=== PATIENT | female | born 1985 | race Caucasian/White ===

== ENCOUNTER 2017-11-19 08:00 | Outpatient (CLI) | payer MEDICAID ==
[2017-11-19 13:16] LABS: BASOPHILS % (AUTO) 0.3 %; EOSINOPHILS # (AUTO) 0.1 10^3/uL (0.0-0.7); EOSINOPHILS % (AUTO) 0.9 %; LYMPHOCYTES # (AUTO) 1.7 10^3/uL (1.5-3.5); LYMPHOCYTES % (AUTO) 28.4 %; MEAN CORPUSCULAR HEMOGLOBIN 31.7 pg (27.0-31.0); MEAN CORPUSCULAR HGB CONC 34.2 g/dL (32.0-36.0); MEAN CORPUSCULAR VOLUME 92.6 fL (81.0-99.0); MEAN PLATELET VOLUME 8.4 fL (7.9-10.8); MONOCYTES # (AUTO) 0.3 10^3/uL (0.0-1.0); MONOCYTES % (AUTO) 5.6 %; NEUTROPHILS # (AUTO) 3.8 10^3/uL (1.5-6.6); NEUTROPHILS % (AUTO) 64.8 %; PLT - PLATELET COUNT 268 10^3/uL (130-450); RED CELL DISTRIBUTION WIDTH 13.7 % (12.0-15.0); WHITE BLOOD COUNT 5.8 x10^3/uL (4.8-10.8)
[2017-11-19 13:51] LABS: ALBUMIN/GLOBULIN RATIO 1.4 (1.0-2.2); ALKALINE PHOSPHATASE 34 IU/L (42-121); ALT ALANINE AMINOTRANSFERASE 33 IU/L (10-60); AST ASPARTATE AMINOTRANSFERASE 29 IU/L (10-42); BILIRUBIN,TOTAL 1.2 mg/dL (0.2-1.0); BUN - BLOOD UREA NITROGEN 13 mg/dL (6-20); CALCIUM 8.8 mg/dL (8.5-10.3); CARBON DIOXIDE - CO2 26 mmol/L (21-32); CHLORIDE 106 mmol/L (101-111); CHOLESTEROL 155 mg/dL; CREATININE 0.9 mg/dL (0.4-1.0); GFR - MDRD 73 (>89); GLUCOSE 97 mg/dL (70-100); HDL CHOLESTEROL 78 mg/dL; LDL CHOLESTEROL,CALCULATED 59 mg/dL; LDL/HDL RATIO 0.8 (<4.4); SODIUM 137 mmol/L (135-145); TOTAL PROTEIN 6.8 g/dL (6.7-8.2); VLDL CHOLESTEROL 18 mg/dL
== END 2017-11-19 08:01 | disposition home or self-care (01) ==
LOC: LAB.N 08:00
PROVIDERS: ATTEND Nurse Practitioner Gerontology
DX: Z13.9 Encounter for screening, unspecified (principal)
CPT/HCPCS: 36415; 80053; 80061; 83721; 84443; 85025

== ENCOUNTER 2018-03-22 08:00 | Outpatient (CLI) | payer MEDICAID | END 2018-03-22 08:01 | disposition home or self-care (01) | LOC: LAB.N 08:00 | PROVIDERS: ATTEND Nurse Practitioner Gerontology | DX: Z33.1 Pregnant state, incidental (principal) | CPT/HCPCS: 36415; 84702 ==

== ENCOUNTER 2018-03-24 08:21 | Outpatient (CLI) | payer MEDICAID | END 2018-03-24 08:22 | disposition home or self-care (01) | LOC: LAB.N 08:21 | PROVIDERS: ATTEND Nurse Practitioner Gerontology | DX: Z33.1 Pregnant state, incidental (principal) | CPT/HCPCS: 36415; 84702 ==

== ENCOUNTER 2018-06-10 21:07 | Emergency (ER) | payer MEDICAID ==
[2018-06-10 21:22] LABS: BILIRUBIN,URINE NEGATIVE (NEGATIVE); GLUCOSE, URINE (UA) NEGATIVE (NEGATIVE); KETONES,URINE (UA) NEGATIVE (NEGATIVE); LEUKOCYTE ESTERASE, URINE SMALL (NEGATIVE); NITRITE,URINE NEGATIVE (NEGATIVE); OCCULT BLOOD,URINE TRACE-INTA (NEGATIVE); PH,URINE 7.5 PH (5.0-7.5); PROTEIN,URINE NEGATIVE (NEGATIVE); UROBILINOGEN,URINE 0.2 (NORMAL) E.U./dL (NORMAL)
[2018-06-10 21:26] LABS: CLARITY,URINE CLEAR (CLEAR)
[2018-06-10 21:58] LABS: AMORPHOUS SEDIMENT,UR Moderate /LPF; BACTERIA,URINE Moderate /HPF (None Seen); RBC,URINE 0-5 /HPF (0-5); SQUAMOUS EPITHELIAL CELL,UR MOD Squamous (<= Few)
[2018-06-10] MEDS ORDERED: SODIUM CHLORIDE 0.9% 1,000 ML IV ONE (23:17)
[2018-06-10 23:22] LABS: BASOPHILS % (AUTO) 0.3 %; EOSINOPHILS % (AUTO) 0.2 %; HGB - HEMOGLOBIN 12.2 g/dL (12.0-16.0); LYMPHOCYTES % (AUTO) 8.9 %; MEAN CORPUSCULAR HEMOGLOBIN 32.4 pg (27.0-31.0); MEAN CORPUSCULAR HGB CONC 34.5 g/dL (32.0-36.0); MEAN PLATELET VOLUME 7.4 fL (7.9-10.8); MONOCYTES # (AUTO) 0.7 10^3/uL (0.0-1.0); MONOCYTES % (AUTO) 5.7 %; NEUTROPHILS # (AUTO) 9.9 10^3/uL (1.5-6.6); NEUTROPHILS % (AUTO) 84.9 %; PLT - PLATELET COUNT 235 10^3/uL (130-450); RED BLOOD COUNT 3.77 10^6/uL (4.20-5.40); RED CELL DISTRIBUTION WIDTH 13.5 % (12.0-15.0); WHITE BLOOD COUNT 11.7 x10^3/uL (4.8-10.8)
[2018-06-10 23:38] LABS: ALBUMIN 3.6 g/dL (3.2-5.5); ALBUMIN/GLOBULIN RATIO 1.1 (1.0-2.2); BILIRUBIN,TOTAL 0.9 mg/dL (0.2-1.0); CALCIUM 8.4 mg/dL (8.5-10.3); CREATININE 0.5 mg/dL (0.4-1.0); TOTAL PROTEIN 6.8 g/dL (6.7-8.2)
[2018-06-11] MEDS ORDERED: ACETAMINOPHEN 325 MG TABLET PO STA (00:03)
--- NOTE | 2018-06-11 00:07 | ED Physician Documentation ---
PD HPI FEVER - Stated complaint Stated Complaint: FEVER/NAUSEA/13WK OB - Chief complaint Chief Complaint: Abd Pain - History obtained from History obtained from: Patient - History of Present Illness Timing - onset: Enter time (11:00), Today Timing details: Abrupt onset, Intermittant Pain level max: 0 Pain level now: 0 Associated symptoms: Chills, Sweats, Nasal congestion (mild). No: Ear pain, Rhinorrhea, Sinus pain, Sore throat, Dry cough, Productive cough, Chest pain, Dyspnea, Abdominal pain, NVD, Urinary symptoms, Rash/skin lesion Similar symptoms before: Has not had sx before Recently seen: Not recently seen - Additional information Additional information: Approximately 13 weeks , c/o fever since 11 AM today, Tmax at home 103 ( higher in ED triage). Has taken tylenol twice today with transient improvement. Also sweats/chills, mild nasal congestion. otherwise feels well Review of Systems Constitutional: reports: Fever, Chills, Sweats Ears: denies: Ear pain Nose: reports: Rhinorrhea / runny nose, Congestion. 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: Ovarian cysts : Kidney stones - Past Surgical History Past Surgical History: Yes General: Cholecystectomy HEENT: Tonsil/Adenoidectomy - Present Medications Home Medications: Ambulatory Orders Medication Instructions Recorded Confirmed Prenatl Vit6/Iron/FA/B12/Ca/D3 1 tab PO DAILY 06/10/18 06/10/18 [Mteryti Combo Pack] - Allergies Allergies/Adverse Reactions: Allergies Allergy/AdvReac Type Severity Reaction Status Date / Time No Known Drug Allergies Allergy Verified 06/10/18 21:14 - Social History Does the pt smoke?: Yes Smoking Status: Current every day smoker Does the pt drink ETOH?: No Does the pt have substance abuse?: Yes - Immunizations Immunizations are current?: Yes - POLST Patient has POLST: No PD ED PE NORMAL - Vitals Vital signs reviewed: Yes - General General: Alert and oriented X 3, No acute distress, Well developed/nourished - HEENT HEENT: Pharynx benign - Neck Neck: Supple, no meningeal sign - Cardiac Cardiac: RRR, No murmur - Respiratory Respiratory: No respiratory distress, Clear bilaterally - Abdomen Abdomen: Soft, Non tender - Back Back: No CVA TTP - Derm Derm: Normal color, Warm and dry Results - Vitals Vitals: Oxygen O2 Source Room air - Labs Labs: Laboratory Tests 06/10/18 06/10/18 06/10/18 21:19 23:05 23:05 WBC 11.7 H RBC 3.77 L Hgb 12.2 Hct 35.4 L MCV 94.0 MCH 32.4 H MCHC 34.5 RDW 13.5 Plt Count 235 MPV 7.4 L Neut # (Auto) 9.9 H Lymph # (Auto) 1.0 L [place] # (Auto) 0.7 Eos # (Auto) 0.0 Baso # (Auto) 0.0 Absolute Nucleated RBC 0.00 Nucleated RBC % 0.0 Sodium 131 L Potassium 3.4 L Chloride 101 Carbon Dioxide 21 Anion Gap 9.0 BUN 9 Creatinine 0.5 Estimated GFR (MDRD) 143 Glucose 91 Lactic Acid Calcium 8.4 L Total Bilirubin 0.9 AST 19 ALT 15 Alkaline Phosphatase 52 Total Protein 6.8 Albumin 3.6 Globulin 3.2 Albumin/Globulin Ratio 1.1 Lipase 33 HCG, Quant Urine Color YELLOW Urine Clarity CLEAR Urine pH 7.5 Ur Specific [place] 1.015 Urine Protein NEGATIVE Urine Glucose (UA) NEGATIVE Urine Ketones NEGATIVE Urine Occult Blood TRACE-INTA Urine Nitrite NEGATIVE Urine Bilirubin NEGATIVE Urine Urobilinogen 0.2 (NORMAL) Ur Leukocyte Esterase SMALL H Urine RBC 0-5 Urine WBC 0-3 Ur Squamous Epith Cells MOD Squamous H Amorphous Sediment Moderate Urine Bacteria Moderate H Urine Mucus Ur Microscopic Review INDICATED Urine Culture Comments NOT INDICATED Influenza A (Rapid) Influenza B (Rapid) 06/10/18 06/11/18 06/11/18 23:05 01:03 01:05 WBC RBC Hgb Hct MCV MCH MCHC RDW Plt Count MPV Neut # (Auto) Lymph # (Auto) [place] # (Auto) Eos # (Auto) Baso # (Auto) Absolute Nucleated RBC Nucleated RBC % Sodium Potassium Chloride Carbon Dioxide Anion Gap BUN Creatinine Estimated GFR (MDRD) Glucose Lactic Acid 1.5 Calcium Total Bilirubin AST ALT Alkaline Phosphatase Total Protein Albumin Globulin Albumin/Globulin Ratio Lipase HCG, Quant 46679.00 Urine Color Urine Clarity Urine pH Ur Specific [place] Urine Protein Urine Glucose (UA) Urine Ketones Urine Occult Blood Urine Nitrite Urine Bilirubin Urine Urobilinogen Ur Leukocyte Esterase Urine RBC Urine WBC Ur Squamous Epith Cells Amorphous Sediment Urine Bacteria Urine Mucus Ur Microscopic Review Urine Culture Comments Influenza A (Rapid) Negative Influenza B (Rapid) Negative 06/11/18 04:30 WBC RBC Hgb Hct MCV MCH MCHC RDW Plt Count MPV Neut # (Auto) Lymph # (Auto) [place] # (Auto) Eos # (Auto) Baso # (Auto) Absolute Nucleated RBC Nucleated RBC % Sodium Potassium Chloride Carbon Dioxide Anion Gap BUN Creatinine Estimated GFR (MDRD) Glucose Lactic Acid Calcium Total Bilirubin AST ALT Alkaline Phosphatase Total Protein Albumin Globulin Albumin/Globulin Ratio Lipase HCG, Quant Urine Color YELLOW Urine Clarity CLEAR Urine pH 7.0 Ur Specific [place] 1.020 Urine Protein NEGATIVE Urine Glucose (UA) NEGATIVE Urine Ketones NEGATIVE Urine Occult Blood TRACE-INTA Urine Nitrite NEGATIVE Urine Bilirubin NEGATIVE Urine Urobilinogen 0.2 (NORMAL) Ur Leukocyte Esterase SMALL H Urine RBC 0-5 Urine WBC 4-5 Ur Squamous Epith Cells FEW Squamous Amorphous Sediment Urine Bacteria Few Urine Mucus Few Strands Ur Microscopic Review INDICATED Urine Culture Comments INDICATED Influenza A (Rapid) Influenza B (Rapid) - Rads (name of study) OB first trimester US Radiology: Prelim report reviewed, See rad report PD MEDICAL DECISION MAKING - ED course Complexity details: reviewed results, re-evaluated patient, considered differential, d/w patient ED course: Despite high fever, patient appears to be in NAD and has unremarkable physical exam, reassuring test results (US, blood tests (minimal leukocytosis)). UA s/o contaminated specimen (squamous cells), although no WBC/RBC on microscopy. A second sample was collected prior to discharge so culture can be performed (if indicated by result), but suspicion of UTI/pyelonephritis is very low at this point, based on lack of microscopy WBC. Fever resolved during ED stay ( subsequent to tylenol) - Sepsis Event Vital Signs: Oxygen O2 Source Room air Departure - Departure Disposition: Home, Self Care Clinical Impression: Fever Qualifiers: Fever type: unspecified Qualified Code(s): R50.9 - Fever, unspecified Qualifiers: Weeks of gestation: 11 weeks Qualified Code(s): Z3A.11 - 11 weeks gestation of Condition: Good Instructions: ED Fever Unconf Cause Follow-Up: Joie De La Rosa ARNP [Primary Care Provider] - Discharge Date/Time: 06/11/18 04:35
--- NOTE | 2018-06-11 02:24 | Ultrasound Report ---
Reason: pelvic pain, 13 weeks , febrile Procedure Date: 06/11/2018 Accession Number: [id number] / [id number] Procedure: US - OB First Trimester CPT Code: FULL RESULT: EXAM: FIRST TRIMESTER OBSTETRIC ULTRASOUND EXAM DATE: 06/11/2018 01:23 AM. CLINICAL HISTORY: Pelvic pain, 13 weeks , febrile. LMP: 03/21/2018. COMPARISONS: None. TECHNIQUE: Transabdominal ultrasound examination with static image documentation. CLINICAL DATES: EGA 11 weeks 5 days with SUSAN 12/26/2018 based on LMP. ASSESSMENT: Gestational Sac: Single intrauterine. Mean gestational sac diameter: 75 mm. Embryo: CRL (crown-rump length) 43 mm = 11 weeks 0 days. Cardiac activity: 188 beats per minute. Yolk sac: 5 mm. Amniotic fluid: Not accurately assessed at this gestational age. Early placenta: Anterior. Other: No perigestational fluid collection demonstrated. MATERNAL STRUCTURES: Uterus: Anteverted. Unremarkable. Cervix: Closed. Right Ovary/Adnexa: Unremarkable. The ovary measures 2.8 x 1.5 x 1.2 cm, volume 2.7 cc. Left Ovary/Adnexa: Corpus luteum measuring 2.0 x 1.0 cm. The ovary measures 4.5 x 1.6 x 2.1 cm, volume 7.5 cc. Free Fluid: None. Other: None. IMPRESSION: 1. Single viable intrauterine at EGA 11 weeks 0 days with SUSAN 12/31/2018 based on crown-rump length, which is concordant with clinical dates. 2. Assigned dating is SUSAN 12/26/2018 based on LMP. 3. Ovaries appear normal with corpus luteum on the left. RADIA
[2018-06-11 04:36] VITALS: BP 110/65
[2018-06-11 04:41] LABS: BILIRUBIN,URINE NEGATIVE (NEGATIVE); GLUCOSE, URINE (UA) NEGATIVE (NEGATIVE); KETONES,URINE (UA) NEGATIVE (NEGATIVE); LEUKOCYTE ESTERASE, URINE SMALL (NEGATIVE); NITRITE,URINE NEGATIVE (NEGATIVE); OCCULT BLOOD,URINE TRACE-INTA (NEGATIVE); PROTEIN,URINE NEGATIVE (NEGATIVE); UROBILINOGEN,URINE 0.2 (NORMAL) E.U./dL (NORMAL)
[2018-06-11 04:49] LABS: CLARITY,URINE CLEAR (CLEAR)
[2018-06-11 04:50] LABS: BACTERIA,URINE Few /HPF (None Seen); MUCUS,URINE Few Strands; RBC,URINE 0-5 /HPF (0-5); SQUAMOUS EPITHELIAL CELL,UR FEW Squamous (<= Few)
== END 2018-06-11 04:35 | disposition home or self-care (01) ==
LOC: ED 21:07
DX: O99.89 Other specified diseases and conditions complicating pregnancy, childbirth and the puerperium (principal); R50.9 Fever, unspecified; F17.200 Nicotine dependence, unspecified, uncomplicated; Z3A.11 11 weeks gestation of pregnancy
CPT/HCPCS: 36415; 76801; 80053; 81001; 83605; 83690; 84702; 85025; 87086; 87275; 87276; 96360; 99283; 99284; A9270; 81003

== ENCOUNTER 2018-06-14 21:20 | Emergency (ER) | payer MEDICAID ==
--- NOTE | 2018-06-14 21:48 | ED Physician Documentation ---
PD HPI ABD PAIN - Stated complaint Stated Complaint: ABD PX/11WKS PREG - Chief complaint Chief Complaint: Abd Pain - History obtained from History obtained from: Patient - History of Present Illness Timing - onset: How many days ago (1-2) Timing - details: Gradual onset Pain level max: 8 Pain level now: 5 Quality: Cramping, Pain Location: Suprapubic Radiation: Other (no radiation) Improved by: Other (no ameliorating factors) Worsened by: Other (no exacerbating factors) Associated symptoms: No: Fever, Nausea, Vomiting Similar symptoms before: Diagnosis (patient feels symptoms are reminiscent of her previous miscarriage) Recently seen: Emergency Dept (T+R few days ago (from this ED by me) for fever; at that time, she did not have any of the symptoms she is now presenting with ( specifically, she did not have any abdominal or pelvic pain, vaginal bleeding). She had contacted her doctor subsequent to that ED visit and was told to take acetaminophen on a regular basis until f/u (scheduled for 2 days from tonight's visit, with outpatient US scheduled for tomorrow). She missed a dose of acetaminophen on Thursday (2 days ago), and had fever to 103 (PO).) - Additional information Additional information: approximately 11 weeks . 3 days ago (Thursday night), she developed spotting (vaginal bleeding), noted when wiping after urinating. She subsequently developed worsening vaginal bleeding and 2 days ago (Thursday morning), she developed suprapubic cramping, which also has been steadily increasing. 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: Ovarian 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 : Kidney stones HEENT: None Psych: None Musculoskeletal: None Derm: None - Past Surgical History Past Surgical History: Yes General: Cholecystectomy HEENT: Tonsil/Adenoidectomy - Present Medications Home Medications: Ambulatory Orders Medication Instructions Recorded Confirmed Prenatl Vit6/Iron/FA/B12/Ca/D3 1 tab PO DAILY 06/10/18 06/10/18 [Mteryti Combo Pack] oxyCODONE [Roxicodone] 5 mg PO Q6H PRN #14 tablet 06/15/18 - Allergies Allergies/Adverse Reactions: Allergies Allergy/AdvReac Type Severity Reaction Status Date / Time No Known Drug Allergies Allergy Verified 06/14/18 21:29 - Social History Does the pt smoke?: Yes Smoking Status: Current every day smoker Does the pt drink ETOH?: No Does the pt have substance abuse?: Yes - Immunizations Immunizations are current?: Yes - POLST Patient has POLST: No PD ED PE NORMAL - Vitals Vital signs reviewed: Yes - General General: Alert and oriented X 3, Well developed/nourished, Other (mostly NAD, although she has a few episodes of obvious painful distress during H+P, lasting a few minutes per episode) - HEENT HEENT: Moist mucous membranes - Cardiac Cardiac: RRR, No murmur - Respiratory Respiratory: No respiratory distress, Clear bilaterally - Abdomen Abdomen: Soft, Non tender - Back Back: No CVA TTP - Derm Derm: Normal color, Warm and dry PD ED PE EXPANDED - Female Female : Vaginal Bleeding, Tissue present, Licensed Practical Vocational Nurse present (VALERIE Aguilar), Other (moderate amount of gelatinous, friable clots which were removed, revealing tissue that was extruding from os; tissue removed, and this was found to be POC (embryo/early stage fetus). after tissue removed, small residual clotting removed. no vaginal bleeding noted once all of the clots and the tissue was removed. ). No: Adnexal Tenderness Results - Vitals Vitals: Vital Signs - 24 hr 06/15/18 06/15/18 06/15/18 02:17 03:05 04:23 Temperature 37 C Heart Rate 83 87 Respiratory 16 17 12 Rate Blood Pressure 111/61 112/68 O2 Saturation 100 100 06/15/18 04:46 Temperature Heart Rate Respiratory 17 Rate Blood Pressure O2 Saturation Oxygen O2 Source Room air - Labs Labs: Laboratory Tests 06/14/18 06/14/18 06/14/18 21:50 21:50 22:25 WBC 11.7 H RBC 3.33 L Hgb 10.4 L Hct 30.7 L MCV 92.1 MCH 31.3 H MCHC 33.9 RDW 13.1 Plt Count 228 MPV 7.2 L Neut # (Auto) 8.9 H Lymph # (Auto) 1.8 [place] # (Auto) 0.9 Eos # (Auto) 0.1 Baso # (Auto) 0.0 Absolute Nucleated RBC 0.00 Nucleated RBC % 0.0 Sodium Potassium Chloride Carbon Dioxide Anion Gap BUN Creatinine Estimated GFR (MDRD) Glucose Calcium Total Bilirubin AST ALT Alkaline Phosphatase Total Protein Albumin Globulin Albumin/Globulin Ratio Lipase Urine Color YELLOW Urine Clarity CLEAR Urine pH 6.0 Ur Specific [place] 1.020 1.020 Urine Protein NEGATIVE Urine Glucose (UA) NEGATIVE Urine Ketones NEGATIVE Urine Occult Blood MODERATE H Urine Nitrite NEGATIVE Urine Bilirubin NEGATIVE Urine Urobilinogen 0.2 (NORMAL) Ur Leukocyte Esterase NEGATIVE Urine RBC 0-5 Urine WBC 0-3 Ur Squamous Epith Cells RARE Squamous Urine Bacteria None Seen Ur Microscopic Review INDICATED Urine Culture Comments NOT INDICATED Urine HCG, Qual POSITIVE 06/14/18 22:25 WBC RBC Hgb Hct MCV MCH MCHC RDW Plt Count MPV Neut # (Auto) Lymph # (Auto) [place] # (Auto) Eos # (Auto) Baso # (Auto) Absolute Nucleated RBC Nucleated RBC % Sodium 135 Potassium 3.4 L Chloride 105 Carbon Dioxide 23 Anion Gap 7.0 BUN 10 Creatinine 0.5 Estimated GFR (MDRD) 143 Glucose 105 H Calcium 8.5 Total Bilirubin 0.3 AST 22 ALT 20 Alkaline Phosphatase 68 Total Protein 6.1 L Albumin 2.8 L Globulin 3.3 Albumin/Globulin Ratio 0.8 L Lipase 29 Urine Color Urine Clarity Urine pH Ur Specific [place] Urine Protein Urine Glucose (UA) Urine Ketones Urine Occult Blood Urine Nitrite Urine Bilirubin Urine Urobilinogen Ur Leukocyte Esterase Urine RBC Urine WBC Ur Squamous Epith Cells Urine Bacteria Ur Microscopic Review Urine Culture Comments Urine HCG, Qual PD MEDICAL DECISION MAKING - ED course Complexity details: reviewed results, re-evaluated patient, considered differential, d/w patient ED course: US reveals no cardiac activity. Subsequent to pelvic exam (during which clots and fetus were removed from vagina/os), patient reported significant improvement in the cramping pain and bleeding. Exam does not suggest endometritis nor other source for the fevers she has been experiencing. - Sepsis Event Vital Signs: Vital Signs - 24 hr 06/15/18 06/15/18 06/15/18 02:17 03:05 04:23 Temperature 37 C Heart Rate 83 87 Respiratory 16 17 12 Rate Blood Pressure 111/61 112/68 O2 Saturation 100 100 06/15/18 04:46 Temperature Heart Rate Respiratory 17 Rate Blood Pressure O2 Saturation Oxygen O2 Source Room air Departure - Departure Disposition: 01 Home, Self Care Clinical Impression: Complete miscarriage Condition: Good Instructions: ED Miscarriage Completed Follow-Up: Joie De La Rosa ARNP [Primary Care Provider] - Prescriptions: oxyCODONE [Roxicodone] 5 mg PO Q6H PRN #14 tablet PRN Reason: Pain Comments: 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 Discharge Date/Time: 06/15/18 04:47
[2018-06-14 22:10] LABS: BILIRUBIN,URINE NEGATIVE (NEGATIVE); GLUCOSE, URINE (UA) NEGATIVE (NEGATIVE); KETONES,URINE (UA) NEGATIVE (NEGATIVE); LEUKOCYTE ESTERASE, URINE NEGATIVE (NEGATIVE); NITRITE,URINE NEGATIVE (NEGATIVE); OCCULT BLOOD,URINE MODERATE (NEGATIVE); PROTEIN,URINE NEGATIVE (NEGATIVE); UROBILINOGEN,URINE 0.2 (NORMAL) E.U./dL (NORMAL)
[2018-06-14 22:16] LABS: BACTERIA,URINE None Seen /HPF (None Seen); CLARITY,URINE CLEAR (CLEAR); RBC,URINE 0-5 /HPF (0-5); SQUAMOUS EPITHELIAL CELL,UR RARE Squamous (<= Few)
[2018-06-14] MEDS ORDERED: MORPHINE 2 MG/ML CARPUJECT IVP STA (22:17)
[2018-06-14 22:36] LABS: BASOPHILS % (AUTO) 0.4 %; EOSINOPHILS # (AUTO) 0.1 10^3/uL (0.0-0.7); EOSINOPHILS % (AUTO) 0.8 %; HGB - HEMOGLOBIN 10.4 g/dL (12.0-16.0); LYMPHOCYTES # (AUTO) 1.8 10^3/uL (1.5-3.5); LYMPHOCYTES % (AUTO) 15.3 %; MEAN CORPUSCULAR HEMOGLOBIN 31.3 pg (27.0-31.0); MEAN CORPUSCULAR HGB CONC 33.9 g/dL (32.0-36.0); MEAN CORPUSCULAR VOLUME 92.1 fL (81.0-99.0); MEAN PLATELET VOLUME 7.2 fL (7.9-10.8); MONOCYTES # (AUTO) 0.9 10^3/uL (0.0-1.0); MONOCYTES % (AUTO) 7.7 %; NEUTROPHILS # (AUTO) 8.9 10^3/uL (1.5-6.6); NEUTROPHILS % (AUTO) 75.8 %; PLT - PLATELET COUNT 228 10^3/uL (130-450); RED BLOOD COUNT 3.33 10^6/uL (4.20-5.40); RED CELL DISTRIBUTION WIDTH 13.1 % (12.0-15.0); WHITE BLOOD COUNT 11.7 x10^3/uL (4.8-10.8)
[2018-06-14 22:48] LABS: ALBUMIN 2.8 g/dL (3.2-5.5); ALBUMIN/GLOBULIN RATIO 0.8 (1.0-2.2); BILIRUBIN,TOTAL 0.3 mg/dL (0.2-1.0); CALCIUM 8.5 mg/dL (8.5-10.3); CREATININE 0.5 mg/dL (0.4-1.0); TOTAL PROTEIN 6.1 g/dL (6.7-8.2)
[2018-06-14 23:49] LABS: HCG UR QUAL POSITIVE
--- NOTE | 2018-06-15 00:17 | Ultrasound Report ---
Reason: , severe pelvic pain Procedure Date: 06/14/2018 Accession Number: [id number] / [id number] Procedure: US - OB First Trimester CPT Code: FULL RESULT: EXAM: FIRST TRIMESTER OBSTETRIC ULTRASOUND (Less than 11 weeks) EXAM DATE: 06/14/2018 11:09 PM. CLINICAL HISTORY: , severe pelvic pain. LMP: 03/21/2018. COMPARISONS: 06/11/2018. TECHNIQUE: Transabdominal and transvaginal ultrasound examination with static image documentation. CLINICAL DATES: EGA 12 weeks 1 day with SUSAN 12/26/2018 based on LMP. ASSESSMENT: Gestational Sac: Single intrauterine. Mean gestational sac diameter: 34 mm. Gestational sac shape is irregular, and the sac is in the lower uterine segment and cervix. Embryo: CRL (crown-rump length) 30 mm = 9 weeks 4 days. Cardiac activity: Not seen. Yolk sac: Not seen. Amniotic fluid: Not accurately assessed at this gestational age. Early placenta: Not visible at this gestational age. Other: Possible clot at the fundal endometrium measuring 4.1 x 2.7 cm. MATERNAL STRUCTURES: Uterus: Anteverted. Unremarkable. Cervix: Gestational sac appears to extend into the upper cervix. Right Ovary/Adnexa: Unremarkable. The ovary measures 2.1 x 1.5 x 1.4 cm, volume 2.3 cc. Left Ovary/Adnexa: Unremarkable. The ovary measures 3.7 x 1.8 x 2.9 cm, volume 10.4 cc. Free Fluid: None. Other: None. IMPRESSION: 1. Single intrauterine at EGA 9 weeks 4 days based on crown-rump length, which is discordant with clinical dates. 2. Irregular gestational sac which is now in the lower uterine segment and cervix. No cardiac activity seen. Findings appear to represent in progress. RADIA
[2018-06-15] MEDS ORDERED: MORPHINE 2 MG/ML CARPUJECT IVP STA (02:08)
[2018-06-15 04:24] VITALS: BP 112/68
== END 2018-06-15 04:47 | disposition home or self-care (01) ==
LOC: ED 21:20
DX: O03.9 Complete or unspecified spontaneous abortion without complication (principal); F17.200 Nicotine dependence, unspecified, uncomplicated
CPT/HCPCS: 36415; 76801; 80053; 81001; 81003; 81025; 83690; 85025; 87086; 96374; 96376; 99283; 99284

== ENCOUNTER 2018-06-21 11:57 | Emergency (ER) | payer MEDICAID ==
[2018-06-21 12:28] LABS: BASOPHILS # (AUTO) 0.1 10^3/uL (0.0-0.1); BASOPHILS % (AUTO) 0.5 %; EOSINOPHILS # (AUTO) 0.1 10^3/uL (0.0-0.7); EOSINOPHILS % (AUTO) 0.6 %; HGB - HEMOGLOBIN 12.1 g/dL (12.0-16.0); LYMPHOCYTES # (AUTO) 2.3 10^3/uL (1.5-3.5); LYMPHOCYTES % (AUTO) 16.5 %; MEAN CORPUSCULAR HEMOGLOBIN 31.3 pg (27.0-31.0); MEAN CORPUSCULAR HGB CONC 33.8 g/dL (32.0-36.0); MEAN CORPUSCULAR VOLUME 92.8 fL (81.0-99.0); MEAN PLATELET VOLUME 6.6 fL (7.9-10.8); MONOCYTES # (AUTO) 0.6 10^3/uL (0.0-1.0); MONOCYTES % (AUTO) 4.4 %; NEUTROPHILS # (AUTO) 10.7 10^3/uL (1.5-6.6); PLT - PLATELET COUNT 424 10^3/uL (130-450); RED BLOOD COUNT 3.86 10^6/uL (4.20-5.40); RED CELL DISTRIBUTION WIDTH 13.8 % (12.0-15.0); WHITE BLOOD COUNT 13.8 x10^3/uL (4.8-10.8)
[2018-06-21 12:42] LABS: ALBUMIN 3.6 g/dL (3.2-5.5); ALBUMIN/GLOBULIN RATIO 0.9 (1.0-2.2); BILIRUBIN,TOTAL 0.6 mg/dL (0.2-1.0); CALCIUM 8.8 mg/dL (8.5-10.3); CREATININE 0.6 mg/dL (0.4-1.0); TOTAL PROTEIN 7.4 g/dL (6.7-8.2)
[2018-06-21 12:50] LABS: BILIRUBIN,URINE NEGATIVE (NEGATIVE); GLUCOSE, URINE (UA) NEGATIVE (NEGATIVE); KETONES,URINE (UA) NEGATIVE (NEGATIVE); LEUKOCYTE ESTERASE, URINE LARGE (NEGATIVE); NITRITE,URINE NEGATIVE (NEGATIVE); OCCULT BLOOD,URINE MODERATE (NEGATIVE); PH,URINE 7.5 PH (5.0-7.5); PROTEIN,URINE NEGATIVE (NEGATIVE); UROBILINOGEN,URINE 0.2 (NORMAL) E.U./dL (NORMAL)
[2018-06-21 12:53] LABS: CLARITY,URINE CLOUDY (CLEAR); HCG UR QUAL POSITIVE
[2018-06-21] MEDS ORDERED: MECLIZINE 12.5 MG TABLET PO STA (12:58)
--- NOTE | 2018-06-21 12:59 | ED Physician Documentation ---
PD HPI FOCAL NEURO - Stated complaint Stated Complaint: DIZZY/NAUSEA/VOMITING - Chief complaint Chief Complaint: Neuro - History obtained from History obtained from: Patient - History of Present Illness Timing - onset: Other (She miscarried a week ago. Per her recollection of the interaction with physician here it did not seem like there was likely to be retained products and she has no pelvic pain and minimal spotting and no discharge at this point. She did have a fever when that happened. Last 4 days and especially today She has had spinning dizziness that is much worse when and starts with head motion especially to the left. When she is still she does not have any dizziness. She is mildly nauseous with it. She denies any headache or focal neurologic symptoms with this. 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, Miscarriage(s) : Kidney stones HEENT: None Psych: None Musculoskeletal: None Derm: None - Past Surgical History Past Surgical History: Yes General: Cholecystectomy HEENT: Tonsil/Adenoidectomy - Present Medications Home Medications: Ambulatory Orders Medication Instructions Recorded Confirmed Meclizine [Antivert] 25 mg PO Q6H PRN #15 tablet 06/21/18 Ondansetron Odt [Zofran] 4 mg TL Q6H PRN #10 tablet 06/21/18 - Allergies Allergies/Adverse Reactions: Allergies Allergy/AdvReac Type Severity Reaction Status Date / Time No Known Drug Allergies Allergy Verified 06/14/18 21:29 - Social History Does the pt smoke?: No Smoking Status: Former smoker Does the pt drink ETOH?: No Does the pt have substance abuse?: Yes - Immunizations Immunizations are current?: Yes - POLST Patient has POLST: No PD ED PE NORMAL - Vitals Vital signs reviewed: Yes - General General: Alert and oriented X 3, No acute distress - HEENT HEENT: PERRL, EOMI, Other (Mild fast nystagmus on leftward gaze, TMs normal.) - Neck Neck: Supple, no meningeal sign, No bony TTP - Cardiac Cardiac: RRR, No murmur - Respiratory Respiratory: No respiratory distress, Clear bilaterally - Abdomen Abdomen: Normal bowel sounds, Soft, Non tender - Neuro Neuro: Alert and oriented X 3, insurance claim representative 2-12 intact Eye Opening: Spontaneous Motor: Obeys Commands Verbal: Oriented GCS Score: 15 - Psych Psych: Normal mood, Normal affect NIHSS - Time Time: 13:00 - Level of Consciousness Level of consciousness: (0) Alert, Keenly responsive LOC Questions: (0) Answers both Q's correct LOC Commands: (0) Performs both correctly - Gaze Best Gaze: (0) Normal - Visual Visual: (0) No loss - Facial Palsy Facial Palsy: (0) Normal, symmetrical movement - Motor Arms (both separate) Motor Arm (right): (0) No drift Motor Arm (left): (0) No drift - Motor Legs (both separate) Motor Leg (right): (0) No drift Motor Leg (left): (0) No drift - Limb Ataxia Limb Ataxia: (0) Absent - Sensory Sensory: (0) Normal - Best Language Best Language: (0) No aphasia - Dysarthria Dysarthria: (0) Normal - Extinction and Inattention (formally neg Extinction and inattention: (0) No abnormality - Total Score/Results Total Score/Result: 0 Results - Vitals Vitals: Vital Signs - 24 hr 06/21/18 06/21/18 12:01 15:58 Temperature 36.7 C 37.0 C Heart Rate 73 76 Respiratory 16 12 Rate Blood Pressure 120/69 109/60 O2 Saturation 100 100 Oxygen O2 Source Room air - Labs Labs: Laboratory Tests 06/21/18 06/21/18 06/21/18 12:22 12:25 12:25 WBC 13.8 H RBC 3.86 L Hgb 12.1 Hct 35.8 L MCV 92.8 MCH 31.3 H MCHC 33.8 RDW 13.8 Plt Count 424 MPV 6.6 L Neut # (Auto) 10.7 H Lymph # (Auto) 2.3 [place] # (Auto) 0.6 Eos # (Auto) 0.1 Baso # (Auto) 0.1 Absolute Nucleated RBC 0.01 Nucleated RBC % 0.0 Sodium 134 L Potassium 3.6 Chloride 98 L Carbon Dioxide 28 Anion Gap 8.0 BUN 10 Creatinine 0.6 Estimated GFR (MDRD) 116 Glucose 91 Calcium 8.8 Total Bilirubin 0.6 AST 24 ALT 39 Alkaline Phosphatase 63 Total Protein 7.4 Albumin 3.6 Globulin 3.8 Albumin/Globulin Ratio 0.9 L Lipase 29 HCG, Quant 6247.00 Urine Color Urine Clarity Urine pH Ur Specific Melvin Urine Protein Urine Glucose (UA) Urine Ketones Urine Occult Blood Urine Nitrite Urine Bilirubin Urine Urobilinogen Ur Leukocyte Esterase Urine RBC Urine WBC Ur Squamous Epith Cells Urine Bacteria Ur Microscopic Review Urine Culture Comments Urine HCG, Qual 06/21/18 12:39 WBC RBC Hgb Hct MCV MCH MCHC RDW Plt Count MPV Neut # (Auto) Lymph # (Auto) [place] # (Auto) Eos # (Auto) Baso # (Auto) Absolute Nucleated RBC Nucleated RBC % Sodium Potassium Chloride Carbon Dioxide Anion Gap BUN Creatinine Estimated GFR (MDRD) Glucose Calcium Total Bilirubin AST ALT Alkaline Phosphatase Total Protein Albumin Globulin Albumin/Globulin Ratio Lipase HCG, Quant Urine Color YELLOW Urine Clarity CLOUDY Urine pH 7.5 Ur Specific Melvin 1.010 Urine Protein NEGATIVE Urine Glucose (UA) NEGATIVE Urine Ketones NEGATIVE Urine Occult Blood MODERATE H Urine Nitrite NEGATIVE Urine Bilirubin NEGATIVE Urine Urobilinogen 0.2 (NORMAL) Ur Leukocyte Esterase LARGE H Urine RBC 0-5 Urine WBC 6-10 H Ur Squamous Epith Cells MOD Squamous H Urine Bacteria None Seen Ur Microscopic Review INDICATED Urine Culture Comments NOT INDICATED Urine HCG, Qual POSITIVE - Rads (name of study) Pelvic sono Radiology: EMP read contemporaneously (Retained products of conception) PD MEDICAL DECISION MAKING - ED course ED course: 32-year-old woman with recent miscarriage presents with peripheral vertigo. Very symptomatic during David-Hallpike and an Shaylee done was after meclizine. Given the apparent retained products of conception the case was discussed by phone with Dr. Aguilar, on-call OB. Noting she has no clinical evidence of endometritis, no tenderness, pain or fevers. She recommended 800 mcg of buccal misoprostal 1 and follow-up in clinic for repeat ultrasound. - Sepsis Event Vital Signs: Vital Signs - 24 hr 06/21/18 06/21/18 12:01 15:58 Temperature 36.7 C 37.0 C Heart Rate 73 76 Respiratory 16 12 Rate Blood Pressure 120/69 109/60 O2 Saturation 100 100 Oxygen O2 Source Room air Departure - Departure Disposition: 01 Home, Self Care Clinical Impression: Retained products of conception Peripheral vertigo Qualifiers: Laterality: left Qualified Code(s): H81.392 - Other peripheral vertigo, left ear Condition: Good Record reviewed to determine appropriate education?: Yes Instructions: Dizziness Vertigo Inner Ear Follow-Up: [facility] [Provider Group] Prescriptions: Meclizine [Antivert] 25 mg PO Q6H PRN #15 tablet PRN Reason: Vertigo Ondansetron Odt [Zofran] 4 mg TL Q6H PRN #10 tablet PRN Reason: Nausea / Vomiting Comments: The vertigo should be self-limited, and hopefully the maneuver we did in the emergency department today will help. The medications will help as well. As far as the retained products of conception, the medication we gave you here should help complete the process but she do need to follow-up with OB in a few days and have a repeat ultrasound to make sure that everything is back to normal. Forms: Activity restrictions Discharge Date/Time: 06/21/18 16:10
[2018-06-21 13:02] LABS: BACTERIA,URINE None Seen /HPF (None Seen); RBC,URINE 0-5 /HPF (0-5); SQUAMOUS EPITHELIAL CELL,UR MOD Squamous (<= Few)
[2018-06-21] MEDS ORDERED: miSOPROStol 200 MCG TABLET PO STA (15:41)
--- NOTE | 2018-06-21 15:58 | Ultrasound Report ---
Reason: F/U miscarriage, persistent pos preg test Procedure Date: 06/21/2018 Accession Number: [id number] / [id number] Procedure: US - OB First Trimester CPT Code: FULL RESULT: EXAM: PELVIC ULTRASOUND EXAM DATE: 06/21/2018 03:24 PM. CLINICAL HISTORY: F/U miscarriage, persistent pos preg test. COMPARISON: 06/14/2018. TECHNIQUE: Realtime transabdominal pelvic scan performed to identify the uterus and adnexa and as an overview of other pelvic structures, followed by transvaginal scan to provide greater detail of the uterus and adnexa, with static image documentation. FINDINGS: Uterus: 11.4 x 5.8 x 7.3 cm. Anteverted position. Heterogeneous. Masses: None. Endometrium: Large amount of heterogeneous debris within the endometrial cavity measuring about 4.9 x 4.1 x 4.7 cm, with hyperemic rim. Cervix: Closed, with trace fluid. Right Ovary: 3.1 x 1.5 x 1.7 cm. Normal echotexture and blood flow. Left Ovary: 4.0 x 1.8 x 2.2 cm. Normal echotexture and blood flow. Free Fluid: None. Other: None. IMPRESSION: Retained products of conception. RADIA
[2018-06-21 15:59] VITALS: BP 109/60
== END 2018-06-21 16:10 | disposition home or self-care (01) ==
LOC: ED 11:57
DX: O03.4 Incomplete spontaneous abortion without complication (principal); H81.392 Other peripheral vertigo, left ear; Z87.891 Personal history of nicotine dependence
CPT/HCPCS: 76801; 76817; 80053; 81001; 81025; 83690; 84702; 85025; 99283; A9270; 36415; 81003; 87086

== ENCOUNTER 2018-06-25 14:41 | Outpatient (CLI) | payer MEDICAID ==
[2018-06-25 15:26] LABS: BASOPHILS % (AUTO) 0.3 %; EOSINOPHILS % (AUTO) 0.3 %; HGB - HEMOGLOBIN 7.8 g/dL (12.0-16.0); LYMPHOCYTES # (AUTO) 1.3 10^3/uL (1.5-3.5); LYMPHOCYTES % (AUTO) 12.8 %; MEAN CORPUSCULAR HEMOGLOBIN 32.1 pg (27.0-31.0); MEAN CORPUSCULAR HGB CONC 34.2 g/dL (32.0-36.0); MONOCYTES # (AUTO) 0.5 10^3/uL (0.0-1.0); MONOCYTES % (AUTO) 4.7 %; NEUTROPHILS # (AUTO) 8.2 10^3/uL (1.5-6.6); NEUTROPHILS % (AUTO) 81.9 %; PLT - PLATELET COUNT 351 10^3/uL (130-450); RED BLOOD COUNT 2.43 10^6/uL (4.20-5.40)
== END 2018-06-25 14:42 | disposition home or self-care (01) ==
LOC: LAB 14:41
PROVIDERS: ATTEND Registered Nurse
DX: O03.89 Complete or unspecified spontaneous abortion with other complications (principal)
CPT/HCPCS: 36415; 84702; 85025

== ENCOUNTER 2018-07-09 17:47 | Outpatient (CLI) | payer MEDICAID ==
[2018-07-09 19:13] LABS: BASOPHILS % (AUTO) 0.6 %; EOSINOPHILS # (AUTO) 0.1 10^3/uL (0.0-0.7); EOSINOPHILS % (AUTO) 2.7 %; HGB - HEMOGLOBIN 11.3 g/dL (12.0-16.0); LYMPHOCYTES # (AUTO) 2.2 10^3/uL (1.5-3.5); LYMPHOCYTES % (AUTO) 41.9 %; MEAN CORPUSCULAR HEMOGLOBIN 32.8 pg (27.0-31.0); MEAN CORPUSCULAR HGB CONC 33.3 g/dL (32.0-36.0); MEAN CORPUSCULAR VOLUME 98.3 fL (81.0-99.0); MONOCYTES # (AUTO) 0.3 10^3/uL (0.0-1.0); MONOCYTES % (AUTO) 5.9 %; NEUTROPHILS # (AUTO) 2.6 10^3/uL (1.5-6.6); NEUTROPHILS % (AUTO) 48.9 %; PLT - PLATELET COUNT 323 10^3/uL (130-450); RED BLOOD COUNT 3.43 10^6/uL (4.20-5.40); RED CELL DISTRIBUTION WIDTH 16.8 % (12.0-15.0); WHITE BLOOD COUNT 5.2 x10^3/uL (4.8-10.8)
== END 2018-07-09 17:48 | disposition home or self-care (01) ==
LOC: LAB 17:47
PROVIDERS: ATTEND Registered Nurse
DX: O03.89 Complete or unspecified spontaneous abortion with other complications (principal)
CPT/HCPCS: 84702; 85025

== ENCOUNTER 2018-07-25 16:56 | Outpatient (CLI) | payer MEDICAID | END 2018-07-25 16:57 | disposition home or self-care (01) | LOC: LAB 16:56 | PROVIDERS: ATTEND Registered Nurse | DX: O03.89 Complete or unspecified spontaneous abortion with other complications (principal) | CPT/HCPCS: 84702 ==

== ENCOUNTER 2018-08-05 11:48 | Emergency (ER) | payer MEDICAID ==
[2018-08-05 12:46] LABS: BASOPHILS # (AUTO) 0.1 10^3/uL (0.0-0.1); BASOPHILS % (AUTO) 0.8 %; EOSINOPHILS # (AUTO) 0.1 10^3/uL (0.0-0.7); EOSINOPHILS % (AUTO) 1.2 %; HGB - HEMOGLOBIN 13.2 g/dL (12.0-16.0); INR 1.1 (0.8-1.2); LYMPHOCYTES # (AUTO) 2.2 10^3/uL (1.5-3.5); LYMPHOCYTES % (AUTO) 36.3 %; MEAN CORPUSCULAR HEMOGLOBIN 32.5 pg (27.0-31.0); MEAN CORPUSCULAR HGB CONC 34.2 g/dL (32.0-36.0); MEAN CORPUSCULAR VOLUME 95.2 fL (81.0-99.0); MONOCYTES # (AUTO) 0.3 10^3/uL (0.0-1.0); MONOCYTES % (AUTO) 4.3 %; NEUTROPHILS # (AUTO) 3.5 10^3/uL (1.5-6.6); NEUTROPHILS % (AUTO) 57.4 %; PLT - PLATELET COUNT 297 10^3/uL (130-450); PT - PROTHROMBIN TIME 11.9 secs (9.9-12.6); RED BLOOD COUNT 4.07 10^6/uL (4.20-5.40); RED CELL DISTRIBUTION WIDTH 13.4 % (12.0-15.0)
--- NOTE | 2018-08-05 12:50 | ED Physician Documentation ---
PD HPI FEMALE - Stated complaint Stated Complaint: BLEEDING/12 WKS PREG - Chief complaint Chief Complaint: Abd Pain - History obtained from History obtained from: Patient - History of Present Illness Timing - onset: Today Timing - duration: Days (had miscarriage early Jun and seen in ER with some bleeding. Had U/S showing retained POC and had misoprostol PO. Had clots and tissue couple days later. Was doing okay after and then the past few days has had some spotting and cramping, with abrupt bleeding of 6 pads per hour this morning. No fevers.) Timing - details: Abrupt onset Associated symptoms: Pelvic pain, Vaginal bleeding. No: Fever, Vaginal discharge, Genital sore/lesion, Dysuria Contributing factors: Oral contraceptive (she is on OCP the past 5 weeks). 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, Miscarriage(s) : Kidney stones HEENT: None Psych: None Musculoskeletal: None Derm: None - Past Surgical History Past Surgical History: Yes General: Cholecystectomy HEENT: Tonsil/Adenoidectomy - Present Medications Home Medications: Ambulatory Orders Medication Instructions Recorded Confirmed HYDROcod/ACETAM 5/325 [[place] 5/325] 1 tab PO Q6H PRN #15 tablet 08/05/18 Naproxen [Naprosyn] 500 mg PO BID PRN #30 tablet 08/05/18 - Allergies Allergies/Adverse Reactions: Allergies Allergy/AdvReac Type Severity Reaction Status Date / Time No Known Drug Allergies Allergy Verified 08/05/18 12:05 - Social History Does the pt smoke?: No Smoking Status: Never smoker Does the pt drink ETOH?: No Does the pt have substance abuse?: Yes - Immunizations Immunizations are current?: Yes - POLST Patient has POLST: No PD ED PE NORMAL - Vitals Vital signs reviewed: Yes - General General: Alert and oriented X 3, Well developed/nourished - Neck Neck: Supple, no meningeal sign, No adenopathy - Cardiac Cardiac: RRR, No murmur - Respiratory Respiratory: Clear bilaterally - Abdomen Abdomen: Normal bowel sounds, Soft, Non distended, No organomegaly, Other (tender suprapubic area without guarding) - Female Female : Deferred - Rectal Rectal: Deferred - Back Back: No CVA TTP - Derm Derm: Normal color, Warm and dry - Extremities Extremities: No deformity, Normal ROM s pain, No calf tenderness / cord Results - Vitals Vitals: Oxygen O2 Source Room air - Labs Labs: Laboratory Tests 08/05/18 08/05/18 08/05/18 12:23 12:23 12:23 WBC RBC Hgb Hct MCV MCH MCHC RDW Plt Count MPV Neut # (Auto) Lymph # (Auto) [place] # (Auto) Eos # (Auto) Baso # (Auto) Absolute Nucleated RBC Nucleated RBC % PT 11.9 INR 1.1 APTT 27.7 Sodium 138 Potassium 3.8 Chloride 105 Carbon Dioxide 23 Anion Gap 10.0 BUN 17 Creatinine 0.6 Estimated GFR (MDRD) 116 Glucose 105 H Calcium 9.4 Total Bilirubin 0.6 AST 20 ALT 16 Alkaline Phosphatase 53 Total Protein 7.6 Albumin 4.2 Globulin 3.4 Albumin/Globulin Ratio 1.2 Lipase 30 HCG, Quant Urine Color Urine Clarity Urine pH Ur Specific Patterson Urine Protein Urine Glucose (UA) Urine Ketones Urine Occult Blood Urine Nitrite Urine Bilirubin Urine Urobilinogen Ur Leukocyte Esterase Urine RBC Urine WBC Ur Squamous Epith Cells Urine Bacteria Urine Culture Comments Blood Type AB POSITIVE Antibody Screen NEGATIVE 08/05/18 08/05/18 08/05/18 12:23 12:23 12:45 WBC 6.0 RBC 4.07 L Hgb 13.2 Hct 38.7 MCV 95.2 MCH 32.5 H MCHC 34.2 RDW 13.4 Plt Count 297 MPV 8.0 Neut # (Auto) 3.5 Lymph # (Auto) 2.2 [place] # (Auto) 0.3 Eos # (Auto) 0.1 Baso # (Auto) 0.1 Absolute Nucleated RBC 0.00 Nucleated RBC % 0.0 PT INR APTT Sodium Potassium Chloride Carbon Dioxide Anion Gap BUN Creatinine Estimated GFR (MDRD) Glucose Calcium Total Bilirubin AST ALT Alkaline Phosphatase Total Protein Albumin Globulin Albumin/Globulin Ratio Lipase HCG, Quant 8.37 Urine Color LT RED Urine Clarity CLEAR Urine pH 6.0 Ur Specific [place] <=1.005 Urine Protein NEGATIVE Urine Glucose (UA) NEGATIVE Urine Ketones NEGATIVE Urine Occult Blood LARGE H Urine Nitrite NEGATIVE Urine Bilirubin NEGATIVE Urine Urobilinogen 0.2 (NORMAL) Ur Leukocyte Esterase NEGATIVE Urine RBC TNTC H Urine WBC 0-3 Ur Squamous Epith Cells RARE Squamous Urine Bacteria None Seen Urine Culture Comments NOT INDICATED Blood Type Antibody Screen - Rads (name of study) pelvic US Radiology: Prelim report reviewed (no acute process. Some nonvascular debris in canal (presume clots).) PD MEDICAL DECISION MAKING - ED course Complexity details: reviewed results, re-evaluated patient (having tapering bleeding here in ED. ), considered differential, d/w patient, d/w consultant education (Dr. Koenig) Departure - Departure Disposition: 01 Home, Self Care Clinical Impression: Dysfunctional uterine bleeding, Uterine cramping Condition: Stable Record reviewed to determine appropriate education?: Yes Instructions: ED Bleed Irregular Vaginal Follow-Up: Joie De La Rosa ARNP [Primary Care Provider] - Patricia Manning CNM, [facility] [Provider Admit Priv/Credential] - Prescriptions: HYDROcod/ACETAM 5/325 [[place] 5/325] 1 tab PO Q6H PRN #15 tablet PRN Reason: Pain Naproxen [Naprosyn] 500 mg PO BID PRN #30 tablet PRN Reason: Pain Comments: Drink lots of fluids. Use naproxen or ibuprofen twice daily for the next week or so. Add Tylenol or hydrocodone if needed for pains. Continue with the increased dose of control 3 times a day for the next 3 days as directed by Dr. Santiago. Follow-up with the gynecology office next week, call for an appointment. Discharge Date/Time: 08/05/18 17:00
[2018-08-05 12:57] LABS: ALBUMIN 4.2 g/dL (3.2-5.5); ALBUMIN/GLOBULIN RATIO 1.2 (1.0-2.2); BILIRUBIN,TOTAL 0.6 mg/dL (0.2-1.0); CALCIUM 9.4 mg/dL (8.5-10.3); CREATININE 0.6 mg/dL (0.4-1.0); TOTAL PROTEIN 7.6 g/dL (6.7-8.2)
[2018-08-05] MEDS ORDERED: SODIUM CHLORIDE 0.9% 1,000 ML IV ONE (13:11)
[2018-08-05] MEDS ORDERED: KETOROLAC 60 MG/2 ML VIAL IVP STA (13:11)
[2018-08-05 13:25] LABS: BILIRUBIN,URINE NEGATIVE (NEGATIVE); GLUCOSE, URINE (UA) NEGATIVE (NEGATIVE); KETONES,URINE (UA) NEGATIVE (NEGATIVE); LEUKOCYTE ESTERASE, URINE NEGATIVE (NEGATIVE); NITRITE,URINE NEGATIVE (NEGATIVE); OCCULT BLOOD,URINE LARGE (NEGATIVE); PROTEIN,URINE NEGATIVE (NEGATIVE); UROBILINOGEN,URINE 0.2 (NORMAL) E.U./dL (NORMAL)
[2018-08-05 13:29] LABS: CLARITY,URINE CLEAR (CLEAR)
[2018-08-05 13:30] LABS: RBC,URINE TNTC /HPF (0-5); SQUAMOUS EPITHELIAL CELL,UR RARE Squamous (<= Few)
[2018-08-05 13:31] LABS: BACTERIA,URINE None Seen /HPF (None Seen)
[2018-08-05] MEDS ORDERED: MORPHINE 10 MG/ML VIAL IVP STA ×2 (14:53→16:11)
--- NOTE | 2018-08-05 15:24 | Ultrasound Report ---
Reason: lower abd pain for few days Procedure Date: 08/05/2018 Accession Number: [id number] / [id number] Procedure: US - Pelvic w/Transvag+Doppler Ltd CPT Code: FULL RESULT: EXAM: Pelvic w/Transvag+Doppler Ltd DATE: 08/05/2018 2:48 PM CLINICAL HISTORY: lower abd pain for few days COMPARISON: 06/21/2018 TECHNIQUE: Real-time scanning by the technical sales consultant with saved static images reviewed. Transabdominal approach for global evaluation. Endovaginal scanning for detailed assessment of the endometrium. Color flow imaging and Doppler spectral analysis was performed to evaluate blood flow to the ovaries. FINDINGS: Uterus: 8.8 x 4.5 x 7.2 cm, volume 149 cc. Retroverted position. Normal overall size and echotexture. Masses: None. Endometrium: 7 mm. Contains complex avascular debris. Cervix: Unremarkable. Right Ovary: 3.9 x 1.4 x 2.3 cm, volume 6.5 cc. Normal echotexture. Right Ovary: Arterial and venous blood flow are present. Adnexa are unremarkable. Left Ovary: 2.9 x 1.2 x 2 cm, volume 3.6 cc. Normal echotexture. Left Ovary: Arterial and venous blood flow are present. Adnexa are unremarkable. Free Fluid: Very small amount. Other: None. IMPRESSION: 1. Small amount of complex avascular debris within the endometrial canal with normal endometrial thickness. 2. Arterial and venous blood flow are present to the ovaries bilaterally. RADIA
[2018-08-05 17:15] VITALS: BP 118/67
== END 2018-08-05 17:00 | disposition home or self-care (01) ==
LOC: ED 11:48
DX: N93.8 Other specified abnormal uterine and vaginal bleeding (principal); N94.89 Other specified conditions associated with female genital organs and menstrual cycle
CPT/HCPCS: 36415; 76830; 76856; 80053; 81001; 83690; 84702; 85025; 85027; 85610; 85730; 86850; 86900; 86901; 87086; 93976; 96361; 96374; 96375; 96376; 99283

== ENCOUNTER 2018-08-23 12:09 | Outpatient (CLI) | payer MEDICAID ==
[2018-08-23 12:48] LABS: BASOPHILS % (AUTO) 0.5 %; EOSINOPHILS # (AUTO) 0.1 10^3/uL (0.0-0.7); EOSINOPHILS % (AUTO) 2.4 %; HGB - HEMOGLOBIN 13.1 g/dL (12.0-16.0); LYMPHOCYTES # (AUTO) 2.4 10^3/uL (1.5-3.5); LYMPHOCYTES % (AUTO) 39.8 %; MEAN CORPUSCULAR HEMOGLOBIN 31.8 pg (27.0-31.0); MEAN CORPUSCULAR VOLUME 93.6 fL (81.0-99.0); MEAN PLATELET VOLUME 7.7 fL (7.9-10.8); MONOCYTES # (AUTO) 0.4 10^3/uL (0.0-1.0); MONOCYTES % (AUTO) 6.4 %; NEUTROPHILS # (AUTO) 3.1 10^3/uL (1.5-6.6); NEUTROPHILS % (AUTO) 50.9 %; PLT - PLATELET COUNT 237 10^3/uL (130-450); RED BLOOD COUNT 4.13 10^6/uL (4.20-5.40); RED CELL DISTRIBUTION WIDTH 12.9 % (12.0-15.0); WHITE BLOOD COUNT 6.2 x10^3/uL (4.8-10.8)
== END 2018-08-23 12:10 | disposition home or self-care (01) ==
LOC: LAB 12:09
PROVIDERS: ATTEND Registered Nurse
DX: N92.4 Excessive bleeding in the premenopausal period (principal)
CPT/HCPCS: 36415; 84443; 84702; 85025

== ENCOUNTER 2018-10-22 09:55 | Emergency (ER) | payer MEDICAID ==
[2018-10-22] MEDS ORDERED: LIDOCAINE 1%-EPI 1:100000 30 ML MDV SUBQ STA (11:02)
[2018-10-22] MEDS ORDERED: LIDOCAINE 1%-EPI 1:100000 30 ML MDV ONE (11:04)
[2018-10-22] MEDS ORDERED: LIDOCAINE 1% 2 ML VIAL ONE (11:05)
[2018-10-22] MEDS ORDERED: LIDOCAINE 1% 2 ML VIAL SUBQ STA (11:13)
[2018-10-22] MEDS ORDERED: BACITRACIN OINT TOP ONE (11:28)
--- NOTE | 2018-10-22 11:45 | ED Physician Documentation ---
PD HPI UPPER EXT INJURY - Stated complaint Stated Complaint: RT HAND LAC - Chief complaint Chief Complaint: Laceration - History obtained from History obtained from: Patient - History of Present Illness Location: Right, Finger Type of injury: Laceration Where injury occurred: Home Timing - onset: Today (Just prior to arrival.) Associated symptoms: No: Weakness, Numbness - Additonal information Additional information: The patient is a 33-year-old female who cut her right hand at the base of the index finger while washing dishes, when a glass broke. She is right hand dominant. Tetanus status was up-to-date. 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, Miscarriage(s) : Kidney stones HEENT: None Psych: None Musculoskeletal: None Derm: None - Past Surgical History Past Surgical History: Yes General: Cholecystectomy HEENT: Tonsil/Adenoidectomy - Present Medications Home Medications: Ambulatory Orders Medication Instructions Recorded Confirmed No Known Home Medications 10/22/18 10/22/18 - Allergies Allergies/Adverse Reactions: Allergies Allergy/AdvReac Type Severity Reaction Status Date / Time No Known Drug Allergies Allergy Verified 08/05/18 12:05 - Social History Does the pt smoke?: No Smoking Status: Never smoker Does the pt drink ETOH?: No Does the pt have substance abuse?: No - Immunizations Immunizations are current?: Yes - POLST Patient has POLST: No PD ED PE NORMAL - Vitals Vital signs reviewed: Yes (normal) - General General: Alert and oriented X 3, Well developed/nourished - HEENT HEENT: Atraumatic - Respiratory Respiratory: No respiratory distress - Derm Derm: No rash - Extremities Extremities: Other (There is a 3 cm, flap-type laceration at the dorsal base of the right index finger, at the dorsal radial aspect of the MCP joint. The fascial layer overlying the right is involved, with a long crescentic laceration. The patient initially was not able to extend her index finger. After anesthetic was administered she could extend, but upon extension the finger deviated ulnarly. Distal neurovascular is intact.) - Neuro Neuro: Alert and oriented X 3, No motor deficit, No sensory deficit Results - Vitals Vitals: Oxygen O2 Source Room air PD MEDICAL DECISION MAKING - ED course Complexity details: considered differential, d/w patient, d/w it systems analyst consultant ED course: The patient's presentation is significant for laceration overlying the MCP joint at the base of the right index finger. The laceration involves the joint capsule, and there was concern about extensor tendon involvement. I discussed her condition with Dr. Cochran, who evaluated her in the emergency department, repaired her wound, and applied a finger splint.. At the time of discharge I discussed with the patient wound care, the importance of outpatient follow-up in orthopedic clinic, as well as potentially worrisome signs or symptoms that should prompt reevaluation in the emergency department. Departure - Departure Disposition: 01 Home, Self Care Clinical Impression: Finger laceration involving tendon Qualifiers: Encounter type: initial encounter Qualified Code(s): S61.219A - Laceration without foreign body of unspecified finger without damage to nail, initial encounter Condition: Stable Instructions: ED Laceration Hand Follow-Up: Ruchi Cochran MD [Provider Admit Priv/Credential] - Joie De La Rosa ARNP [Primary Care Provider] - Comments: Keep the wound dressing clean and dry, with your index finger extended. Keep the right hand elevated as much of the time as possible. You can use Tylenol or ibuprofen if needed for pain. Follow-up with Dr. Cochran next week as planned. Return to the emergency department if markedly increasing pain, any sign of infection, or otherwise worsening symptoms. Discharge Date/Time: 10/22/18 11:55
[2018-10-22 11:54] VITALS: BP 126/61
--- NOTE | 2018-10-22 13:29 | OPERATIVE REPORT ---
DATE OF SERVICE: 10/22/2018 Physician: Ruchi Cochran MD ORTHOPEDIC CONSULTATION AND PROCEDURE NOTE REQUESTING PHYSICIAN: Wesley Owusu MD PREOPERATIVE DIAGNOSIS(ES): POSTOPERATIVE DIAGNOSIS(ES): PROCEDURE(S): SURGEON: Ruchi Cochran MD MAINTENANCE MECHANIC MILLWRIGHT: ANESTHESIA TYPE/PROVIDER: HISTORY OF PRESENT ILLNESS: Patient is a 33-year-old female who is status post a right hand index fi nger laceration on a piece of glass in her sink that she was washing. She presented to the emergency room with pain and a large flap laceration at the MP joint of the index finger and inability to full y extend her index finger at that joint. After exploration by Dr. Owusu and a block of the tissues a nd clean out, I was consulted because of extensor tendon laceration. The patient's prior medical his tory was noncontributory. Examination revealed a dorsal index finger flap tear extending from slight ly over the mid proximal phalanx of the index finger on the dorsum, extending down towards the radial aspect of the MP joint and, with the flap laid back, there was clear laceration of mainly the entire extensor llamas from dorsal ulnar to proximal radial. The joint itself was not exposed and there was no foreign body in the wound. This was a clean laceration and had been debrided. Patient's neurovas cular exam was intact. IMPRESSION: Acute traumatic laceration of the right index finger extensor mechanism at the level of the extensor llamas at the MP joint. My recommendation to patient was for surgical washout and repair. DESCRIPTION OF PROCEDURE: The patient had already been given an anesthetic block and her hand had be en sterilely prepped. The block was enhanced with about 2 mL of 1% lidocaine and 1 mL of 1% lidocain e with epinephrine infiltrated into the soft tissues around the wound, and this enabled no bleeding a nd no use of a tourniquet required. The patient's flap was carefully folded back and tacked down wit h a Vicryl suture. This allowed exposure of the dorsum and the llamas and, with careful dissection, th e llamas extensor tissues were defined and the joint was looked for, and the laceration did not perform a capsulotomy, had not entered the joint. The #3 Vicryl on a tapered needle was used to repair the extensor llamas with about 6 interrupted sutures. Following this, the flap was laid back in place and about 8 interrupted 4-0 nylon sutures were used to repair the flap. Neosporin ointment and soft gauz e dressing were applied, after which the patient was splinted in extension with a small aluminum spli nt. The plan at discharge was for the patient to perform elevation, leave the dressing clean and dry and intact, and not be bending her finger, and return to clinic for a followup wound check in about 5 days. TD: 10/22/2018 12:03
== END 2018-10-22 11:55 | disposition home or self-care (01) ==
LOC: ED 09:55
DX: S66.320A Laceration of extensor muscle, fascia and tendon of right index finger at wrist and hand level, initial encounter (principal); W25.XXXA Contact with sharp glass, initial encounter; Y93.G1 Activity, food preparation and clean up; Y92.009 Unspecified place in unspecified non-institutional (private) residence as the place of occurrence of the external cause
CPT/HCPCS: 26418; 99283; A9270

== ENCOUNTER 2018-11-08 10:30 | Outpatient (CLI) | payer MEDICAID ==
[2018-11-08 19:04] LABS: HCG UR QUAL NEGATIVE
== END 2018-11-08 23:59 | disposition home or self-care (01) ==
LOC: LAB.N 10:30
PROVIDERS: ATTEND Nurse Practitioner Gerontology
DX: N87.9 Dysplasia of cervix uteri, unspecified (principal)
CPT/HCPCS: 81025

== ENCOUNTER 2018-11-10 07:30 | Day surgery (SDC) | payer MEDICAID ==
--- NOTE | 2018-11-01 11:30 | PREOP HISTORY & PHYSICAL ---
DATE OF ADMISSION: 11/10/2018. IDENTIFICATION: A 33-year-old G6, P3-0-3-3. HISTORY OF PRESENT ILLNESS: Patient presents today for her scheduled preoperative visit. She has been anticipated to do a cold knife cone biopsy on 11/10/2018 secondary to her cervical dysplasia. Patient had a colposcopic biopsy, which revealed ESTEBAN 2 to 3. Given these findings, I recommended patient to undergo a cold knife cone biopsy. I discussed with patient the risks, benefits, alternatives, indications, and expectations of a cold knife cone biopsy. The risks include, but are not limited to inadvertent laceration, cauterization or ligation of the adjacent bladder and rectum. Furthermore, with cold knife cone biopsy, this may increase her risk of labor and delivery for any future pregnancies she may have. Despite whatever her findings come back on pathology, patient will be required to have frequent cytology, perhaps every 3 months. After patient's questions were answered to her satisfaction, she verbalized her desire to proceed with a cold knife cone biopsy. Consent forms have been signed. Patient recently lacerated her right index finger to the capsule of the tendon. She has had this laceration sutured, and it is currently in a splint. Hopefully, she can remove the sutures. Patient is right hand dominant. PAST MEDICAL HISTORY: None. She denies any hypertension, diabetes, thyroid disease, anxiety, depression, or asthma. PAST SURGICAL HISTORY 1. A 2014 laparoscopic cholecystectomy. 2. Tonsillectomy at age 3. ALLERGIES: NO KNOWN DRUG ALLERGIES. MEDICATIONS: None. She does use [email or web address] in [place], [place], as her pharmacy of choice. SOCIAL HISTORY: She denies any tobacco and rarely drinks alcohol. She does smoke and eat edible marijuana. She denies any other illicit drugs. 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 She has 12-year-old Samuel, 11-year-old Myrna, and 4-year-old Deanne. Samuel and Myrna have the same father. Patient is currently dating Michael and would be interested in having kids in the future with him. PRIMARY CARE PROVIDER: Joie De La Rosa. PAST OBSTETRICAL HISTORY: Three term spontaneous vaginal deliveries. It was noted that patient did have gestational hypertension with Myrna but did not require any medications. The biggest baby was daughter, Deanne, weighing 7 pounds, 2 ounces. She has had 2 spontaneous abortions and one therapeutic . PAST GYNECOLOGICAL HISTORY: She states that menses have been normal. She normally bleeds monthly for 4-5 days. Her menses are described as normal in terms of amount. She denies any dysmenorrhea. She denies any previous history of any other sexually transmitted diseases. This is her first abnormal Pap smear. FAMILY HISTORY: Dad has bladder, lung and brain cancer. A paternal uncle has colon cancer. Maternal grandmother has lung cancer, and paternal aunt had lung cancer as well. REVIEW OF SYSTEMS: Negative unless otherwise stated. OBJECTIVE VITAL SIGNS: Height is 67.25 inches, weighs 169 pounds, BMI is 26, blood pressure 110/70. GENERAL: Patient is a well-developed, well-nourished, female in no apparent distress. She is alert and oriented x3. Patient is very optimistic and upbeat. HEENT: Within normal limits. CARDIOVASCULAR: Rate is regular. No murmurs or rubs. PULMONARY: Clear to auscultation bilaterally. ABDOMEN: Soft, nontender. No peritoneal signs. EXTREMITIES: Right index finger has Coban tape on it as well as a finger splint on her right index finger. LABORATORY/DATA 08/05/2018 pelvic ultrasound shows a uterus measuring 8.8 x 4.5 x 2.7 cm and is retroverted. Endometrium measures 7 mm and completely complex avascular debris. Normal ovaries and no free fluid. 05/30/2013 Pap smear was negative. A 07/13/2018 Pap smear was ASCUS with positive high-risk human papillomavirus. 08/23/2018 colposcopic biopsy revealed ESTEBAN 2 to 3. ASSESSMENT 1. A 33-year-old G6, P3-0-3-3. 2. Cervical dysplasia with ESTEBAN 2 to 3. PLAN 1. We will proceed to a scheduled cold knife cone biopsy on 11/10/2018. 2. Educated patient to take [id number] Ibuprofen 800 mg q.6-hours along with Tylenol for her main source of pain control. She does have a prescription for Vicodin for any breakthrough pain she may need. 3. Patient to see me in 2 weeks at [facility] for routine postoperative visit. 4. Patient understands that she will have a normal vaginal discharge for the next 2 weeks. 5. Patient to call should she have any worsening fevers, chills, abdominal pain or vaginal bleeding. 6. Patient to get a urine test on the Thursday or Thursday prior to her surgery on 11/10/2018. TD: 11/01/2018 10:51 MTDD
[~2018-11-10 07:30] MED LIST: ACETAMINOPHEN 1,000 MG/100 ML 100 ML IV ONE; CELECOXIB 100 MG CAPSULE PO ONE; GABAPENTIN 400 MG CAPSULE ONE
[2018-11-10] MEDS ORDERED: LACTATED RINGERS 1,000 ML IV ONE ×2 (07:36→10:16)
--- NOTE | 2018-11-10 07:49 | ANESTHESIA ---
Pre-Anesthesia VS, & Labs - Diagnosis Cervical dysplasia - Procedure Cold knife cone biopsy Vital Signs: Temp Pulse Resp BP Pulse Ox 36.8 C 100 18 135/77 H 98 11/10/18 07:36 11/10/18 07:36 11/10/18 07:36 11/10/18 07:36 11/10/18 07:36 Height 5 ft 8 in Weight (kg) 77 kg Body Mass Index 25.8 - Is Patient ?: No - Lab Results Lab results reviewed: Yes Home Medications and Allergies Home Medications: Ambulatory Orders Hydrocodone/Acetaminophen [Vicodin 5-300 mg Tablet] 1 each PO Q8H PRN 11/03/18 Hydrocodone/Acetaminophen [Vicodin 5-300 mg Tablet] 1 each PO Q8H PRN 11/03/18 Allergies/Adverse Reactions: Allergies Allergy/AdvReac Type Severity Reaction Status Date / Time No Known Drug Allergies Allergy Verified 08/05/18 12:05 Anes History & Medical History - Anesthetic History Anesthesia Complications: reports: No previous complications Family history of Anesthesia Complications: Denies Family history of Malignant Hyperthermia: Denies - Medical History Cardiovascular: reports: None Pulmonary: reports: None Gastrointestinal: reports: None Urinary: reports: Kidney stones Neuro: reports: None Musculoskeletal: reports: None Endocrine/Autoimmune: reports: None Blood Disorders: reports: None Skin: reports: None Smoking Status: Never smoker Psychosocial: reports: No issues indicated - Surgical History General: Cholecystectomy Eyes Ears Nose Throat (EENT): Tonsil/Adenoidectomy Exam General: Alert, Oriented x3, Cooperative Dental: WNL Mouth Opening: Greater than 4 Fingerbreadths Neck Mobility: Normal Mallampati classification: II Thyromental Distance: greater than 6 cm Respiratory: Lungs clear, Normal breath sounds Cardiovascular: Regular rate Neurological: Normal gait Mental/Cognitive Status: Alert/Oriented X3 Cognitive Status: Within normal limits Plan Anesthesia Type: General Consent for Procedure(s) Verified and Reviewed: Yes Code Status: Attempt Resuscitation ASA classification: 1-Healthy patient Is this case an emergency?: No
[2018-11-10] MEDS ORDERED: IODINE/POTASSIUM IODIDE 8 ML SOLUTION TOP ONE ×2 (08:18→09:10)
[2018-11-10] MEDS ORDERED: LIDOCAINE MPF 1%-EPI 1:200000 30 ML VIAL ONE (08:35)
[2018-11-10] MEDS ORDERED: DEXAMETHASONE 4 MG/ML VIAL IVP ONE (09:00)
[2018-11-10] MEDS ORDERED: ONDANSETRON 4 MG/2 ML VIAL IVP ONE (09:00)
[2018-11-10] MEDS ORDERED: fentaNYL 100 MCG/2 ML VIAL IVP ONE (09:00)
[2018-11-10] MEDS ORDERED: MIDAZOLAM 2 MG/2 ML VIAL IVP ONE (09:00)
[2018-11-10] MEDS ORDERED: LIDOCAINE-MPF 2% 5 ML VIAL IM ONE (09:00)
[2018-11-10] MEDS ORDERED: PROPOFOL 200 MG/20 ML VIAL IVP ONE (09:00)
[2018-11-10] MEDS ORDERED: FERRIC SUBSULFATE 8 ML SOLUTION (FOR OR) TOP ONE (09:12)
--- NOTE | 2018-11-10 09:32 | OPERATIVE REPORT ---
Operative Report - Other Other Information/Narrative: Date of Operation: 11/10/2018 Surgeon: Ramya Koenig DO FACOG Physician Office Specialist: None Technical Sales Manager: Radha Vazquez CRNA Anesthesia: LMA Pre-op Dx: 1. 33 yo 2. Cervical dysplasia Post-op Dx: 1. 33 yo 2. Cervical dysplasia Procedure: Cold knife cone biopsy Findings: Multiparous cervix. Small area at 6 O'clock not absorbed by Lugol's. Specimens: 1. Cervical biopsy 2. ECC Drains: None EBL: 5 mL Complications: None Dictation: [id number]
[2018-11-10] MEDS: HYDROmorphone 1 MG/ML CARPUJECT ONE ×2 (09:49→09:55)
--- NOTE | 2018-11-10 10:22 | OPERATIVE REPORT ---
Date of Operation: 11/10/2018 SURGEON: Ramya Koenig DO, DANY DRESSER TENDER: None. CREDIT DIRECTOR: Radha Vazquez CRNA ANESTHESIA: LMA. PREOPERATIVE DIAGNOSES 1. A 33-year-old G6, P3-0-3-3. 2. Cervical dysplasia. POSTOPERATIVE DIAGNOSES 1. A 33-year-old G6, P3-0-3-3 2. Cervical dysplasia. PROCEDURE: Cold knife cone biopsy. FINDINGS: A multiparous cervix, small area at 6 o'clock not absorbed by Lugol solution. SPECIMENS 1. Cervical biopsy. 2. Endocervical curettage. DRAINS: None. ESTIMATED BLOOD LOSS: 5 mL. COMPLICATIONS: None. HISTORY OF PRESENT ILLNESS: This is a patient of [facility], who has had a recent abnormal Pap smear. She had a colposcopy, which was indicative of a high-grade lesion at ESTEBAN 2-3. She was recommended for cold knife cone biopsy. I discussed with the patient the risks, benefits, alternatives, indications, and expectations of a cold knife cone biopsy. Included in the risks were the potential for hemorrhage, infection and damage to the bladder and rectum. With this procedure, she would be an increased risk for labor and delivery should she decide to get afterwards. The patient understands that she will need to still have repeat cytology every six months at minimum, regardless of what test results show. After all of the patient's questions were answered to her satisfaction, she verbalized a desire to proceed with surgery. Consent forms have been signed. OPERATION IN DETAIL: The patient was identified and consented, taken to the operating room, where IV access was already in place. She was then given sequential compression devices, which were placed on her lower extremities and turned on. The patient's bladder was then emptied with an in and out catheter. The patient was prepped and draped in normal sterile fashion in the lithotomy position using Yellofin stirrups. Timeout was performed, which correctly identify the patient, site of the procedure, and the procedure itself. Antibiotics were not indicated in this case. The cervix was identified and two stay sutures were placed at the 3 and 9 o'clock areas. The cervix was then serially injected with 20 mL of 1% lidocaine with epinephrine. Lugol solution was then painted on top of the cervix, and a small area was not absorbed at the 6 o'clock area. Cold knife cone biopsy was then performed with an 11-blade scalpel. Specimens were obtained and handed off the table. The specimen was tagged at the 12 o'clock area. An endocervical curettage was also performed. The cervix was then cauterized in the cervical bed, and a running locked stitch of 0 Vicryl was placed on the cervix circumferentially. Finally, a generous amount of Monsel solution was placed in the cervical bed. Hemostasis was noted. This completed the case. All instruments were removed out of the vagina, and hemostasis was noted. All sponge, lap, and needle counts were correct x2 as per nurse report. The patient was taken back to the recovery room in stable condition. She will be discharged to home later today after postoperative criteria are met. TD: 11/10/2018 09:42 AMALIA
[2018-11-10] MEDS ORDERED: HYDROmorphone 0.5 MG/0.5 ML SYRINGE IVP PRN (11:09)
[2018-11-10] MEDS ORDERED: ONDANSETRON 4 MG/2 ML VIAL IVP PRN (11:09)
[2018-11-10] MEDS ORDERED: LORazepam 2 MG/ML VIAL IVP PRN (11:09)
[2018-11-10] MEDS ORDERED: HYDROcod/ACETAM 10 MG/325 MG TABLET PO PRN (11:09)
[2018-11-10] MEDS ORDERED: ONDANSETRON 4 MG/2 ML VIAL ONE (11:23)
[2018-11-10 12:00] VITALS: BP 124/70
== END 2018-11-10 07:31 | disposition home or self-care (01) ==
LOC: SDS 07:30
PROVIDERS: ATTEND Obstetrics & Gynecology
PROC: 0UBC7ZX Excision of Cervix, Via Natural or Artificial Opening, Diagnostic (ICD-10-PCS; principal; 2018-11-10 09:00)
DX: D06.1 Carcinoma in situ of exocervix (principal)
CPT/HCPCS: 57520; A9270; J0131; J1170; J7120

== ENCOUNTER 2019-01-04 08:09 | Emergency (ER) | payer MEDICAID ==
[2019-01-04] MEDS ORDERED: KETOROLAC 60 MG/2 ML VIAL IM STA (08:46)
[2019-01-04] MEDS ORDERED: DEXAMETHASONE 10 MG/ML VIAL PO STA (08:46)
--- NOTE | 2019-01-04 08:48 | ED Physician Documentation ---
PD HPI BACK PAIN - Stated complaint Stated Complaint: BACK PX - Chief complaint Chief Complaint: Back Pain - History obtained from History obtained from: Patient - History of Present Illness Timing - onset: How many days ago (3) Timing - duration: Days (3) Timing - details: Gradual onset, Still present Location: Lower Quality: Pain, Spasm, Sharp, Similar to prior episodes Associated symptoms: No: Fever, Weakness, Numbness, Incontinent of urine, Unable to urinate, Hematuria, Incontinent of stool Improves with: Ice. No: Rest Worsened by: Movement Contributing factors: Lifting, Twisting Similar symptoms before: Diagnosis (slipped disc) Recently seen: Not recently seen - Additional information Additional information: 33-year-old female who has had intermittent episodes of back pain for the past 13 years has developed back spasm again the past 3 days. She has been using ice on this she is very spastic and is come into the emergency department this morning after having to call off work. She has had prior episodes where she has had to require ambulance transport as she has not been able to move. She states that this morning she is able to sit in a specific position comfortably. Review of Systems Constitutional: denies: Fever, Chills, Myalgias Eyes: denies: Decreased vision Ears: denies: Ear pain Nose: denies: Rhinorrhea / runny nose, Congestion Throat: denies: Sore throat Cardiac: denies: Chest pain / pressure, Palpitations Respiratory: denies: Dyspnea, Cough GI: denies: Abdominal Pain, Nausea, Vomiting : denies: Dysuria, Frequency Skin: denies: Rash, Lesions Musculoskeletal: reports: Back pain. 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, Miscarriage(s) : Kidney stones HEENT: None Psych: None Musculoskeletal: Chronic back pain Derm: None - Past Surgical History Past Surgical History: Yes General: Cholecystectomy HEENT: Tonsil/Adenoidectomy - Present Medications Home Medications: Ambulatory Orders Medication Instructions Recorded Confirmed Cyclobenzaprine [Flexeril] 10 mg PO TID PRN #20 tablet 01/04/19 Hydrocodone/Acetaminophen 1 - 2 each PO Q6H PRN #14 tablet 01/04/19 [Hydrocodon-Acetaminophen 5-325] - Allergies Allergies/Adverse Reactions: Allergies Allergy/AdvReac Type Severity Reaction Status Date / Time No Known Drug Allergies Allergy Verified 01/04/19 08:29 - Social History Does the pt smoke?: No Smoking Status: Never smoker Does the pt drink ETOH?: No Does the pt have substance abuse?: No - Immunizations Immunizations are current?: Yes - POLST Patient has POLST: No PD ED PE NORMAL - Vitals Vital signs reviewed: Yes (hypertensive ) - General General: Alert and oriented X 3, No acute distress, Well developed/nourished, Other (sitting still in a splinted position ) - HEENT HEENT: Atraumatic, PERRL, EOMI - Neck Neck: Supple, no meningeal sign - Respiratory Respiratory: No respiratory distress - Back Back: No CVA TTP, No spinal TTP, Other (There is paraspinous muscle tenderness bilaterally at the lower lumbar spine. 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, No motor deficit, No sensory deficit, Normal speech Eye Opening: Spontaneous Motor: Obeys Commands Verbal: Oriented GCS Score: 15 - Psych Psych: Normal mood, Normal affect Results - Vitals Vitals: Vital Signs - 24 hr 01/04/19 08:25 Temperature 36.8 C Heart Rate 79 Respiratory 18 Rate Blood Pressure 127/93 H O2 Saturation 100 Oxygen O2 Source Room air PD MEDICAL DECISION MAKING - ED course Complexity details: reviewed old records, reviewed results, re-evaluated patient, considered differential, d/w patient ED course: 33-year-old female with lumbar spasm in a typical fashion for her is administered dexamethasone 10 mg orally and 60 of Toradol IM. We will place her on some pain medication muscle relaxant and give her an excuse for 3 days work. Departure - Departure Disposition: 01 Home, Self Care Clinical Impression: Low back strain Qualifiers: Encounter type: initial encounter Qualified Code(s): S39.012A - Strain of muscle, fascia and tendon of lower back, initial encounter Condition: Stable Instructions: ED Sprain Strain Lumbar, ED Spasm Back No Trauma Follow-Up: Joie De La Rosa ARNP [Primary Care Provider] - Prescriptions: Cyclobenzaprine [Flexeril] 10 mg PO TID PRN #20 tablet PRN Reason: Spasms Hydrocodone/Acetaminophen [Hydrocodon-Acetaminophen 5-325] 1 - 2 each PO Q6H PRN #14 tablet PRN Reason: pain Forms: Activity restrictions
[2019-01-04] MEDS ORDERED: CHERRY SYRUP 10 ML UDC PO ONE (09:15)
[2019-01-04 09:44] VITALS: BP 126/67
== END 2019-01-04 09:14 | disposition home or self-care (01) ==
LOC: ED 08:09
DX: S39.012A Strain of muscle, fascia and tendon of lower back, initial encounter (principal); X58.XXXA Exposure to other specified factors, initial encounter; M62.830 Muscle spasm of back
CPT/HCPCS: 96372; 99283

== ENCOUNTER 2020-04-23 09:40 | Outpatient (CLI) | payer OTHER, MEDICAID ==
--- NOTE | 2020-04-24 08:06 | Ultrasound Report ---
PROCEDURE: OB First Trimester INDICATIONS: OB WITH ABNORMAL UTERINE BLEEDING OUTSIDE/PRIOR DATING DATA: Last menstrual period (LMP): 03/10/2020. LMP-based estimated date of delivery (SUSAN): 12/26/2019. First dating scan (date and location): 04/23/2020. Estimated date of delivery (SUSAN) from first dating scan: Not applicable. TECHNIQUE: Real-time scanning was performed of the fetus and maternal pelvic organs, with image documentation. COMPARISON: None FINDINGS: Pelvis:: There is no visualized intrauterine or extrauterine identified. No free fluid is identified. Uterus measures 8.3 x 2.8 x 5.0 cm. Endometrium measures 4 mm. Maternal organs: Ovaries are unremarkable. Limited images through the kidneys minimal appearance of left hydronephrosis. IMPRESSION: No visualized intrauterine or extrauterine . Recommend continued short interval imaging foll ow-up and correlation of beta hCG levels as appropriate. The above findings are concordant with preliminary report. Reviewed by: Snehal Estrella MD on 04/24/2020 8:04 AM PDT Approved by: Snehal Estrella MD on 04/24/2020 8:04 AM PDT Station ID: [id number]
--- NOTE | 2020-04-24 08:10 | Ultrasound Report ---
PROCEDURE: OB transvaginal INDICATIONS: OB WITH ABNORMAL UTERINE BLEEDING OUTSIDE/PRIOR DATING DATA: Last menstrual period (LMP): 03/10/2020. LMP-based estimated date of delivery (SUSAN): 12/26/2019. First dating scan (date and location): 04/23/2020. Estimated date of delivery (SSUAN) from first dating scan: Not applicable. TECHNIQUE: Real-time scanning was performed of the fetus and maternal pelvic organs, with image documentation. COMPARISON: None FINDINGS: Pelvis:: There is no visualized intrauterine or extrauterine identified. No free fluid is identified. Uterus measures 8.3 x 2.8 x 5.0 cm. Endometrium measures 4 mm. Maternal organs: Ovaries are unremarkable. Limited images through the kidneys minimal appearance of left hydronephrosis. IMPRESSION: No visualized intrauterine or extrauterine . Recommend continued short interval imaging foll ow-up and correlation of beta hCG levels as appropriate. The above findings are concordant with preliminary report. Reviewed by: Snehal Estrella MD on 04/24/2020 8:09 AM PDT Approved by: Snehal Estrella MD on 04/24/2020 8:09 AM PDT Station ID: [id number]
== END 2020-04-23 09:41 | disposition home or self-care (01) ==
LOC: DI 09:40
PROVIDERS: ATTEND Advanced Practice Midwife
DX: N93.9 Abnormal uterine and vaginal bleeding, unspecified (principal)
CPT/HCPCS: 36415; 76801; 76817; 84702

== ENCOUNTER 2020-09-14 15:03 | Emergency (ER) | payer OTHER, MEDICAID ==
[2020-09-14] MEDS ORDERED: LORazepam 2 MG/ML VIAL IVP STA (15:31)
--- NOTE | 2020-09-14 15:38 | ED Physician Documentation ---
PD HPI CHEST PAIN - Stated complaint Stated Complaint: CP - Chief complaint Chief Complaint: Cardiac - History obtained from History obtained from: Patient - History of Present Illness Timing - onset: Today Timing - duration: Days (2) Timing - details: Gradual onset, Constant (for the past 2 hours), Intermittant Pain level max: 5 Pain level now: 2 Quality: Pressure, Tightness Location: Left chest Radiation: Neck Improved by: Nothing Worsened by: No: Exertion, Inspiration, Eating, Movement, Palpation, Position Associated symptoms: Feeling faint / dizzy. No: Shortness of air, Diaphoresis, Nausea, Vomiting, General Weakness, Palpitations, Cough Similar symptoms before: Has not had sx before Recently seen: Not recently seen - Additional information Additional information: 35 year old female presents to the emergency department with left-sided chest pain. She states that this started yesterday, intermittently, became constant today. [place] like a tightness and a pressure on the left side of her chest. She states she has had tingling to her bilateral hands as well. She states that her jaw felt like it was moving without her moving it as well. Nothing makes it better or worse. No recent travel or surgeries. No history of blood clots. She is not , breast-feeding or trying to become . Currently is feeling better. 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, Miscarriage(s) : Kidney stones HEENT: None Psych: None Musculoskeletal: Chronic back pain Derm: None - Past Surgical History Past Surgical History: Yes General: Cholecystectomy HEENT: Tonsil/Adenoidectomy - Present Medications Home Medications: Ambulatory Orders Medication Instructions Recorded Confirmed Cyclobenzaprine [Flexeril] 10 mg PO TID PRN #20 tablet 01/04/19 Hydrocodone/Acetaminophen 1 - 2 each PO Q6H PRN #14 tablet 01/04/19 [Hydrocodon-Acetaminophen 5-325] LORazepam [Ativan] 0.5 mg PO Q8H PRN #5 tablet 09/14/20 - Allergies Allergies/Adverse Reactions: Allergies Allergy/AdvReac Type Severity Reaction Status Date / Time No Known Drug Allergies Allergy Verified 01/04/19 08:29 - Social History Does the pt smoke?: No Smoking Status: Never smoker Does the pt drink ETOH?: No Does the pt have substance abuse?: No - Immunizations Immunizations are current?: Yes - POLST Patient has POLST: No PD ED PE NORMAL - Vitals Vital signs reviewed: Yes - General General: Alert and oriented X 3, No acute distress, Well developed/nourished - HEENT HEENT: PERRL, Moist mucous membranes, Pharynx benign - Neck Neck: Supple, no meningeal sign, No bony TTP, No JVD, No bruit - Cardiac Cardiac: RRR, No murmur, Strong equal pulses - Respiratory Respiratory: No respiratory distress, Clear bilaterally - Abdomen Abdomen: Normal bowel sounds, Soft, Non tender, Non distended - Back Back: No spinal TTP - Derm Derm: Warm and dry, No rash - Extremities Extremities: No edema, No calf tenderness / cord - Neuro Neuro: Alert and oriented X 3, 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, No motor deficit, No sensory deficit, Normal speech Eye Opening: Spontaneous Motor: Obeys Commands Verbal: Oriented GCS Score: 15 - Psych Psych: Other (appears anxious) Results - Vitals Vitals: Vital Signs - 24 hr 09/14/20 09/14/20 09/14/20 15:09 15:41 16:21 Temperature 37.1 C Heart Rate 115 H 86 87 Respiratory 20 17 20 Rate Blood Pressure 175/95 H 119/65 111/54 L O2 Saturation 100 98 97 Oxygen O2 Source Room air - EKG (time done) 1506 Rate: Rate (enter#) (102) Rhythm: Sinus tachycardia [place]: Normal Intervals: Normal OK QRS: LVH Ischemia: Normal ST segments - Labs Labs: Laboratory Tests 09/14/20 09/14/20 09/14/20 15:30 15:30 15:30 WBC 8.7 RBC 4.32 Hgb 13.7 Hct 41.5 MCV 96.1 MCH 31.7 H MCHC 33.0 RDW 12.7 Plt Count 264 MPV 9.5 Neut # (Auto) 4.7 Lymph # (Auto) 3.2 [place] # (Auto) 0.6 Eos # (Auto) 0.1 Baso # (Auto) 0.0 Absolute Nucleated RBC 0.00 Nucleated RBC % 0.0 Sodium 137 Potassium 3.6 Chloride 101 Carbon Dioxide 26 Anion Gap 10.0 BUN 15 Creatinine 0.6 Estimated GFR (MDRD) 114 Glucose 96 Calcium 9.3 Total Bilirubin 1.4 H AST 24 ALT 31 Alkaline Phosphatase 49 Troponin I High Sens 2.6 Total Protein 7.3 Albumin 4.4 Globulin 2.9 Albumin/Globulin Ratio 1.5 Lipase 24 Urine Color Urine Clarity Urine pH Ur Specific Marty Urine Protein Urine Glucose (UA) Urine Ketones Urine Occult Blood Urine Nitrite Urine Bilirubin Urine Urobilinogen Ur Leukocyte Esterase Ur Microscopic Review Urine Culture Comments Urine HCG, Qual Nasal Adenovirus (PCR) Nasal B. parapertussis DNA (PCR) Nasal Coronavir 229E PCR Nasal Coronavir HKU1 PCR Nasal Coronavir NL63 PCR Nasal Coronavir OC43 PCR Nasal Enterovir/Rhinovir PCR Nasal Influenza B PCR Nasal Influenza A PCR Nasal Parainfluen 1 PCR Nasal Parainfluen 2 PCR Nasal Parainfluen 3 PCR Nasal Parainfluen 4 PCR Nasal RSV (PCR) Nasal B.pertussis DNA PCR Nasal C.pneumoniae (PCR) [place] Human Metapneumo PCR Nasal M.pneumoniae (PCR) Nasal SARS-CoV-2 (PCR) 09/14/20 09/14/20 15:30 15:35 WBC RBC Hgb Hct MCV MCH MCHC RDW Plt Count MPV Neut # (Auto) Lymph # (Auto) [place] # (Auto) Eos # (Auto) Baso # (Auto) Absolute Nucleated RBC Nucleated RBC % Sodium Potassium Chloride Carbon Dioxide Anion Gap BUN Creatinine Estimated GFR (MDRD) Glucose Calcium Total Bilirubin AST ALT Alkaline Phosphatase Troponin I High Sens Total Protein Albumin Globulin Albumin/Globulin Ratio Lipase Urine Color YELLOW Urine Clarity CLEAR Urine pH 7.0 Ur Specific Marty 1.020 Urine Protein NEGATIVE Urine Glucose (UA) NEGATIVE Urine Ketones NEGATIVE Urine Occult Blood NEGATIVE Urine Nitrite NEGATIVE Urine Bilirubin NEGATIVE Urine Urobilinogen 0.2 (NORMAL) Ur Leukocyte Esterase NEGATIVE Ur Microscopic Review NOT INDICATED Urine Culture Comments NOT INDICATED Urine HCG, Qual NEGATIVE Nasal Adenovirus (PCR) NOT DETECTED Nasal B. parapertussis DNA (PCR) NOT DETECTED Nasal Coronavir 229E PCR NOT DETECTED Nasal Coronavir HKU1 PCR NOT DETECTED Nasal Coronavir NL63 PCR NOT DETECTED Nasal Coronavir OC43 PCR NOT DETECTED Nasal Enterovir/Rhinovir PCR NOT DETECTED Nasal Influenza B PCR NOT DETECTED Nasal Influenza A PCR NOT DETECTED Nasal Parainfluen 1 PCR NOT DETECTED Nasal Parainfluen 2 PCR NOT DETECTED Nasal Parainfluen 3 PCR NOT DETECTED Nasal Parainfluen 4 PCR NOT DETECTED Nasal RSV (PCR) NOT DETECTED Nasal B.pertussis DNA PCR NOT DETECTED Nasal C.pneumoniae (PCR) NOT DETECTED [place] Human Metapneumo PCR NOT DETECTED Nasal M.pneumoniae (PCR) NOT DETECTED Nasal SARS-CoV-2 (PCR) NOT DETECTED - Rads (name of study) CT chest angio Radiology: Prelim report reviewed, EMP read contemporaneously, See rad report (No acute abnormality. No pulmonary embolus or dissection) PD MEDICAL DECISION MAKING - ED course Complexity details: reviewed results, re-evaluated patient, considered differential (No ST elevation NE, no aortic dissection, no PE, no tension pneumothorax, no aortic aneurysm), d/w patient ED course: 35-year-old female with chest pain that started yesterday and has continued today. Negative troponin. Negative CT angiogram. No PE. No aortic dissection. No carotid dissection. Feels better after Ativan. Negative Covid. Unclear etiology of her symptoms, we will have her follow-up with her doctor for further care. Patient counseled regarding signs and symptoms for which I believe and urgent re-evaluation would be necessary. Patient with good understanding of and agreement to plan and is comfortable going home at this time This document was made in part using voice recognition software. While efforts are made to proofread this document, sound alike and grammatical errors may occur. Departure - Departure Disposition: 01 Home, Self Care Clinical Impression: Anxiety Chest pain Qualifiers: Chest pain type: unspecified Qualified Code(s): R07.9 - Chest pain, unspecified Condition: Good Instructions: ED Chest Pain Atypical Unkn Cause Follow-Up: Shannan Abarca ARNP [Primary Care Provider] - Within 1 week Prescriptions: LORazepam [Ativan] 0.5 mg PO Q8H PRN #5 tablet PRN Reason: anxiety Comments: The cause of your symptoms is unclear today. Follow-up with your doctor for further care. Your CT does not show any acute abnormalities. Your EKG is normal, your laboratory testing is normal. Return if you worsen. Use the Ativan as needed for anxiety. Do not drive or operate heavy machinery while taking this medication.
[2020-09-14] MEDS ORDERED: IOVERSOL 320 100 ML VIAL IVP ONE ×2 (15:51→16:40)
[2020-09-14 15:52] LABS: BASOPHILS % (AUTO) 0.5 %; EOSINOPHILS # (AUTO) 0.1 10^3/uL (0.0-0.7); EOSINOPHILS % (AUTO) 1.5 %; HGB - HEMOGLOBIN 13.7 g/dL (12.0-16.0); LYMPHOCYTES # (AUTO) 3.2 10^3/uL (1.5-3.5); LYMPHOCYTES % (AUTO) 36.9 %; MEAN CORPUSCULAR HEMOGLOBIN 31.7 pg (27.0-31.0); MEAN CORPUSCULAR VOLUME 96.1 fL (81.0-99.0); MEAN PLATELET VOLUME 9.5 fL (7.9-10.8); MONOCYTES # (AUTO) 0.6 10^3/uL (0.0-1.0); NEUTROPHILS # (AUTO) 4.7 10^3/uL (1.5-6.6); NEUTROPHILS % (AUTO) 53.9 %; PLT - PLATELET COUNT 264 10^3/uL (130-450); RED BLOOD COUNT 4.32 10^6/uL (4.20-5.40); RED CELL DISTRIBUTION WIDTH 12.7 % (12.0-15.0); WHITE BLOOD COUNT 8.7 x10^3/uL (4.8-10.8)
[2020-09-14 15:55] LABS: BILIRUBIN,URINE NEGATIVE (NEGATIVE); GLUCOSE, URINE (UA) NEGATIVE (NEGATIVE); KETONES,URINE (UA) NEGATIVE (NEGATIVE); LEUKOCYTE ESTERASE, URINE NEGATIVE (NEGATIVE); NITRITE,URINE NEGATIVE (NEGATIVE); OCCULT BLOOD,URINE NEGATIVE (NEGATIVE); PROTEIN,URINE NEGATIVE (NEGATIVE); UROBILINOGEN,URINE 0.2 (NORMAL) E.U./dL (NORMAL)
[2020-09-14 15:57] LABS: CLARITY,URINE CLEAR (CLEAR); HCG UR QUAL NEGATIVE
[2020-09-14 16:08] LABS: ALBUMIN 4.4 g/dL (3.2-5.5); ALBUMIN/GLOBULIN RATIO 1.5 (1.0-2.2); BILIRUBIN,TOTAL 1.4 mg/dL (0.2-1.0); CALCIUM 9.3 mg/dL (8.5-10.3); CREATININE 0.6 mg/dL (0.4-1.0); TOTAL PROTEIN 7.3 g/dL (6.7-8.2)
[2020-09-14 16:31] LABS: C. PNEUMONIAE- RESP PCR PANEL NOT DETECTED
--- NOTE | 2020-09-14 16:50 | CT Report ---
PROCEDURE: ANGIO CHEST W/WO INDICATIONS: L chest pain, possible PE? CONTRAST: IV CONTRAST: Optiray 320 ml: 100 PO CONTRAST: *NO PO CONTRAST TECHNIQUE: After the administration of intravenous contrast, 2 mm thick sections acquired from the pulmonary api des to the posterior costophrenic angles. 3-dimensional maximum intensity projection (MIP) coronal a nd sagittal reformats were then acquired through the thorax. For radiation dose reduction, the follow ing was used: automated exposure control, adjustment of mA and/or kV according to patient size. COMPARISON: FINDINGS: Image quality: Excellent. Pulmonary arteries: Pulmonary arteries are normal in size, and demonstrate no intraluminal filling d efects to suggest central pulmonary embolism. Lungs and pleura: Lungs are clear. No pleural effusions or pneumothorax. Central and peripheral ai rways are patent. Mediastinum: Heart size is normal, without pericardial effusion. No mediastinal or hilar adenopathy . Thoracic aorta is normal in caliber and enhancement. Esophagus is normal in caliber, without hiat al hernia. Bones and chest wall: No suspicious bony lesions. Ribs and thoracic spine appear intact throughout. The thyroid is normal. No axillary or supraclavicular adenopathy. Abdomen: Visualized upper abdominal solid organs appear normal in the early arterial phase of enhanc ement. IMPRESSION: No pulmonary embolus is found, source of chest pain is not identified. There is no sign of pneumoniti s or focal consolidative pneumonia. A definite source of chest pain is not seen. Reviewed by: Reinaldo Alexander MD on 09/14/2020 4:48 PM PST Approved by: Reinaldo Alexander MD on 09/14/2020 4:48 PM PST Station ID: [id number]
[2020-09-14 17:04] VITALS: BP 108/74
== END 2020-09-14 17:03 | disposition home or self-care (01) ==
LOC: ED 15:03
DX: F41.9 Anxiety disorder, unspecified (principal); R07.9 Chest pain, unspecified; R03.0 Elevated blood-pressure reading, without diagnosis of hypertension; R00.0 Tachycardia, unspecified; Z20.828 Contact with and (suspected) exposure to other viral communicable diseases
CPT/HCPCS: 0202U; 36415; 71275; 80053; 81003; 81025; 83690; 84484; 85025; 93005; 96374; 99284; 99285; J2060; Q9967; 81001; 87086

== ENCOUNTER 2021-05-10 09:50 | Outpatient (CLI) | payer MEDICAID, OTHER | END 2021-05-10 23:59 | disposition home or self-care (01) | LOC: LAB.N 09:50 | PROVIDERS: ATTEND Physician Assistant Medical | DX: U07.1 COVID-19 (principal) ==